=== PATIENT | female | born 1965 | race Caucasian/White ===

== ENCOUNTER 2016-04-20 11:21 | Emergency (ER) | payer MEDICARE, MEDICAID ==
[2016-04-20 12:58] VITALS: BP 139/96
[2016-04-20] MEDS ORDERED: Acetaminophen TAB* 325 MG PO ONE (13:27)
--- NOTE | 2016-04-20 13:38 | UC ---
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 patient did have a fever this morning of 100.5, currently temp is 97. care transition mgr says she looks pale, but deos not seem to be in pain at this time. Hx of diverticulitis. 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 - History of Current Complaint Chief Complaint: UCGeneralIllness Stated Complaint: DIARRHEA, AND FEVER Time Seen by Provider: 04/20/16 13:03 Hx Obtained From: Patient Hx From Patient Unobtainable Due To: Other - intellecual diabilities Timing: Constant Onset Severity: Mild Current Severity: Mild - Allergy/Home Medications Allergies/Adverse Reactions: Allergies Allergy/AdvReac Type Severity Reaction Status Date / Time Fluconazole [From Diflucan] Allergy Severe "DOESN'T Verified 03/18/16 20:41 SLEEP FOR DAYS & HITS HERSELF" Influenza Vaccines Allergy Severe Unknown Verified 03/18/16 20:41 Reaction Details PMH/Surg Hx/FS Hx/Imm Hx Previously Healthy: Yes Endocrine History Of: Denies: Diabetes, Thyroid Disease Cardiovascular History Of: Reports: Cardiac Disorders - Cardiomypathy, Hypertension - NEW 09/2015 Respiratory History Of: Reports: Bronchitis - 03/2013 Denies: COPD, Asthma GI/ History Of: Denies: Ulcer Neurological History Of: Reports: Seizures - LAST 1982 Psychological History Of: Reports: Anxiety - ON MEDICATION FOR - Surgical History Surgical History: Yes Surgery Procedure, Year, and Place: unclear - Family History Known Family History: Positive: Unknown - unable to verbalize due to mr - Social History Alcohol Use: None Substance Use Type: None Smoking Status (MU): Never Smoked Tobacco Have You Smoked in the Last Year: No - Immunization History Most Recent Influenza Vaccination: no allergiec Vaccination Up to Date: Yes Review of Systems Constitutional: Fever Skin: Negative Eyes: Negative ENT: Negative Respiratory: Negative Cardiovascular: Negative Gastrointestinal: Diarrhea Genitourinary: Negative Motor: Negative Neurovascular: Negative Musculoskeletal: Negative Neurological: Negative Psychological: Negative All Other Systems Reviewed And Are Negative: Yes Physical Exam Triage Information Reviewed: Yes Appearance: Well-Appearing, Well-Nourished, Ill-Appearing Vital Signs: Initial Vital Signs Temp 98.8 F 01/09/17 12:55 Pulse 80 04/20/16 12:55 Resp 18 04/20/16 12:55 BP 139/96 04/20/16 12:55 Vital Signs Reviewed: Yes Eye Exam: Normal Eyes: Positive: Conjunctiva Clear ENT Exam: Normal ENT: Positive: Normal ENT inspection, Pharynx normal, TMs normal Dental Exam: Normal Neck exam: Normal Neck: Positive: Supple, Nontender, No Lymphadenopathy Respiratory Exam: Normal Respiratory: Positive: Chest non-tender, Lungs clear, Normal breath sounds Cardiovascular Exam: Normal Cardiovascular: Positive: RRR, No Murmur, Pulses Normal Abdominal Exam: Normal, Other - patient is non verbal, but no facila grimacing or signs of pain noted. abdomen is soft. Abdomen Description: Positive: Nontender, No Organomegaly, Soft Bowel Sounds: Positive: Hyperactive Musculoskeletal Exam: Normal Musculoskeletal: Positive: Strength Intact - baseline, ROM Intact, No Edema Neurological Exam: Normal Neurological: Positive: Muscle Tone Normal Psychological Exam: Normal Psychological: Positive: Normal Response To Family Skin Exam: Normal Course/Dx - Course Course Of Treatment: hx obtained, exam performed, cbc obtained, tylenol given per request of caregiver, stool sample ordered. - Differential Dx - Multi-Symptom Provider Diagnoses: diarrhea. fever Discharge - Discharge Plan Condition: Stable Disposition: HOME Patient Education Materials: Acute Diarrhea (ED) Additional Instructions: At this time i recommend stopping the colase, lactulose, and miralax until the diarrhea subsides as they all contribute to increased Bowel movements. if it unclear in the paperwork why she is taking the lactulose, I am assuming there is a high ammonia level. Due to the history of diverticulitis, blood work was taken to assess her white count, to rule out diverticulitis flare up. In the mean time, continue to push fluids as tolerated to prevent dehydration. [place] diet, see enclosed insert about BRAT diet. Please obtain a stool sample and return it to the lab for testing. Return for further evaluation, or follow up with her primary Doctor if her temperature persists and diarrhea continues past 24 hours.
[2016-04-20 19:20] LABS: Hematocrit 38 % (35-47); Hemoglobin 12.6 g/dl (12.0-16.0); Mean Corpuscular HGB Conc 33 g/dl (31-36); Mean Corpuscular Hemoglobin 32 pg (27-31); Mean Corpuscular Volume 97 fL (80-97); Mean Platelet Volume 11 um3 (7.4-10.4); Red Blood Count 3.94 10^6/ul (4.0-5.4); Red Cell Distribution Width 13 % (10.5-15); White Blood Count 7.6 10^3/ul (3.5-10.8)
== END 2016-04-20 14:05 | disposition home or self-care (01) ==
LOC: UCEAST 11:21
DX: R19.7 Diarrhea, unspecified (principal); R50.9 Fever, unspecified; Z88.1 Allergy status to other antibiotic agents; Z88.7 Allergy status to serum and vaccine
CPT/HCPCS: 36415; 85025; 99212; A9270-GY; G0463

== ENCOUNTER 2016-09-18 18:41 | Emergency (ER) | payer MEDICARE, MEDICAID ==
[2016-09-18 18:56] VITALS: BP 133/76
--- NOTE | 2016-09-18 19:32 | UC ---
Complaint Female HPI - HPI Summary HPI Summary: Staff in her [place] [facility] believes she has a UTI--she had a fever today, and has been more agitated than usual (which they state is a symptom of pain for here) - History Of Current Complaint Chief Complaint: UCGU Stated Complaint: POSS UTI Time Seen by Provider: 09/18/16 19:09 Hx Obtained From: Patient ?: No Onset/Duration: Sudden Onset, Lasting Days - 1, Still Present Timing: Constant Severity Initially: Moderate Severity Currently: Moderate Associated Signs And Symptoms: Positive: Fever - Allergies/Home Medications Allergies/Adverse Reactions: Allergies Allergy/AdvReac Type Severity Reaction Status Date / Time Fluconazole [From Diflucan] Allergy Severe "DOESN'T Verified 03/18/16 20:41 SLEEP FOR DAYS & HITS HERSELF" Influenza Vaccines Allergy Severe Unknown Verified 03/18/16 20:41 Reaction Details PMH/Surg Hx/FS Hx/Imm Hx Previously Healthy: Yes - post noe brain injury GI/ History: Diverticulitis, Urosepsis Neurological History: Seizures - Surgical History Surgical History: Yes Surgery Procedure, Year, and Place: unclear - Family History Known Family History: Positive: Unknown - unable to verbalize due to mr - Social History Occupation: Disabled Lives: Correction Alcohol Use: None Substance Use Type: None Smoking Status (MU): Never Smoked Tobacco Have You Smoked in the Last Year: No - Immunization History Most Recent Influenza Vaccination: no allergiec Vaccination Up to Date: Yes Review of Systems Constitutional: Fever Skin: Negative Eyes: Negative ENT: Negative Respiratory: Negative Cardiovascular: Negative Gastrointestinal: Negative Genitourinary: Negative Motor: Negative Neurovascular: Negative Musculoskeletal: Negative Neurological: Negative Psychological: Anxious All Other Systems Reviewed And Are Negative: Yes Physical Exam Triage Information Reviewed: Yes Appearance: Well-Nourished, Ill-Appearing - chronic illness, Pain Distress - yes per the [place] [facility] staff Vital Signs: Initial Vital Signs Temp 95.9 F 09/18/16 18:52 Pulse 102 09/18/16 18:52 Resp 18 09/18/16 18:52 BP 133/76 09/18/16 18:52 Pulse Ox 99 09/18/16 18:52 Vital Signs Reviewed: Yes Eye Exam: Normal Eyes: Positive: Conjunctiva Clear ENT Exam: Normal ENT: Positive: Normal ENT inspection, Hearing grossly normal, Pharynx normal, TMs normal. Negative: Nasal congestion, Nasal drainage, Tonsillar swelling, Tonsillar exudate, Trismus, Muffled/hoarse voice Dental Exam: Normal Neck exam: Normal Neck: Positive: Supple, Nontender, No Lymphadenopathy Respiratory Exam: Normal Respiratory: Positive: Lungs clear, Normal breath sounds, No accessory muscle use Cardiovascular Exam: Normal Cardiovascular: Positive: No Murmur, Pulses Normal, Brisk Capillary Refill, Tachycardia Abdominal Exam: Normal Abdomen Description: Positive: Nontender, No Organomegaly, Soft. Negative: CVA Tenderness (R), CVA Tenderness (L) Bowel Sounds: Positive: Present Musculoskeletal Exam: Normal Musculoskeletal: Positive: No Edema, Strength Limited @, ROM Limited @ Neurological Exam: Normal Neurological: Positive: Alert - to her baseline, Muscle Tone Normal Psychological Exam: Normal Psychological: Positive: Other: - seems upset and agitated Skin Exam: Normal Complaint Female Dx - Course Course Of Treatment: transfer to hospital with [place] [facility] staff driving - Differential Dx/Diagnosis Differential Diagnosis/HQI/PQRI: Appendicitis, Renal Colic, Urinary Tract Infection Provider Diagnoses: febrile illness, sepsis Discharge - Discharge Plan Condition: Guarded Disposition: AGAINST MEDICAL ADVICE
== END 2016-09-18 19:25 | disposition left against medical advice (07) ==
LOC: UCEAST 18:41
DX: A41.9 Sepsis, unspecified organism (principal); R50.9 Fever, unspecified; R56.9 Unspecified convulsions; Z88.7 Allergy status to serum and vaccine; Z88.1 Allergy status to other antibiotic agents
CPT/HCPCS: 99212; G0463

== ENCOUNTER 2016-09-18 19:54 | Inpatient (IN) | payer MEDICARE, MEDICAID ==
[2016-09-18] MEDS ORDERED: NS 0.9% 1000 ML* 2,000 ML IV ONE (20:52)
[2016-09-18 21:48] LABS: Hematocrit 36 % (35-47); Hemoglobin 11.6 g/dl (12.0-16.0); Mean Corpuscular HGB Conc 33 g/dl (31-36); Mean Corpuscular Hemoglobin 32 pg (27-31); Mean Corpuscular Volume 98 fL (80-97); Mean Platelet Volume 12 um3 (7.4-10.4); Red Blood Count 3.63 10^6/ul (4.0-5.4); Red Cell Distribution Width 13 % (10.5-15); White Blood Count 8.2 10^3/ul (3.5-10.8)
[2016-09-18 21:54] LABS: Add Diff/Slide Review? Slide Review Added; Comments Flag Yes
[2016-09-18 22:03] LABS: ALT 13 U/L (7-52); Albumin 4.3 g/dL (3.2-5.2); Alkaline Phosphatase 50 U/L (34-104); BUN/Creatinine Ratio 25.5 (8-20); Blood Urea Nitrogen 12 mg/dL (6-24); C Reactive Protein < 1.00 mg/L (< 5.00); CO2 Carbon Dioxide 25 mmol/L (22-32); Calcium 10.1 mg/dL (8.6-10.3); Chloride 105 mmol/L (101-111); EGFR African American 178.3 (>60); EGFR Non-African American 138.6 (>60); Glucose 94 mg/dL (70-100); Sodium 136 mmol/L (133-145); Total Protein 7.3 g/dL (6.4-8.9)
[2016-09-18 22:09] LABS: Lithium 0.67 mmol/L (0.6-1.2)
[2016-09-18 22:11] LABS: Urine Bacteria Absent (Absent); Urine Bilirubin Negative (Negative); Urine Glucose Negative (Negative); Urine Nitrite Negative (Negative)
--- NOTE | 2016-09-18 22:13 | RAD ---
INDICATION: Fever. COMPARISON: Comparison is made with a prior chest x-ray study from March 11, 2016. TECHNIQUE: A portable view of the chest was obtained. FINDINGS: Cardiac and mediastinal contours appear to be within normal limits. The lungs are underinflated. There is a small infiltrate at the medial right lung base. No pleural effusion is seen. IMPRESSION: SMALL RIGHT BASILAR INFILTRATE.
[2016-09-18] MEDS ORDERED: Levofloxacin 750 MG IVPREMIX(* 750 MG/150 ML BAG IVPB ONE (23:00)
--- NOTE | 2016-09-19 00:50 | HP ---
H&P (Free Text) History and Physical: PCP: Shola Lunsford MD Date/Time of Evaluation: 09/19/2016 0030 CC: fever HPI: Mrs Hutchins is a 51YO female resident of [facility] who is profoundly mentally challenged and unable to make her needs known at or inform on current status at baseline. She was noted to be agitated with a fever which prompted evaluation. Otherwise, per her [facility] caregiver, she has been at her baseline. Evaluation is notable for soft pressures 90/50s & CXR with a RLL infiltrate. PMedHx profoundly mentally challenged HTN cardiomyopathy otherwise unobtainable Ambulatory Orders Acetaminophen TAB* [Tylenol TAB*] 650 mg PO Q4H PRN 09/19/16 Bacitracin OINTMENT* 1 applic TOPICAL BID 09/19/16 Chlorhexidine MOUTHWASH 0.12%* [Peridex Mouth Wash 0.12%*] 15 ml .SEE ORDER BID 09/19/16 Docusate CAP* [Colace Cap*] 100 mg PO BID 09/19/16 Ketoconazole (Topical) [Ketoconazole] 2 % EX WEEKLY 09/19/16 Lactobacillus [Probiotic] 1 cap PO DAILY 09/19/16 Lactulose* 15 ml PO BID 09/19/16 [place] Carbonate TAB* 450 mg PO BID 09/19/16 LoraTADine TAB(NF) [Claritin 10 MG TAB(NF)] 10 mg PO DAILY 09/19/16 Nystatin/Triamcinolone CR(NF) [Mycolog CREAM(NF)] 1 applic TOPICAL BID 09/19/16 Omeprazole CAP* [Prilosec CAP* 20 MG] 40 mg PO DAILY 09/19/16 Pancrelipase (Lipase-Protease- [Creon 6000 Unit] 1 cap PO TID 09/19/16 Polyethylene Glycol 3350 BTL* [Miralax] 238 gm PO ONCE 09/19/16 Simethicone CHEW TAB* [Mylicon*] 80 mg PO BID 09/19/16 Tizanidine HCl 4 mg PO TID 09/19/16 Vitamins A & D OINT* [Vitamin A & D Oint*] 1 applic TOPICAL BID 09/19/16 guaiFENesin LIQ* [Robitussin*] 5 mg PO Q4H PRN 09/19/16 risperiDONE TAB* [RisperDAL*] 0.5 mg PO DAILY 09/19/16 Allergies Fluconazole [From Diflucan] Allergy (Severe, Verified 03/18/16 20:41) "DOESN'T SLEEP FOR DAYS & HITS HERSELF" Influenza Vaccines Allergy (Severe, Verified 03/18/16 20:41) Unknown Reaction Details SocHx: no tobacco, alcohol, or recreational drugs; resides at [facility]; full code status FamHx: unobtainable ROS: as above, otherwise reviewed and all were negative Constitutional: NAD, normally developed, overweight white female occasionally abruptly grunting interpreted as pain by her caregiver vitals: Vital Signs Temp 36.8 C 09/18/16 23:31 Pulse 88 09/18/16 23:42 Resp 20 09/18/16 20:15 BP 95/64 09/18/16 23:42 Pulse Ox 98 09/18/16 23:42 Intake & Output 09/18/16 09/18/16 09/19/16 11:59 23:59 11:59 Weight 65.771 kg HEENM: atraumatic; sclera/conjunctiva: non-icteric/clear; hearing: clinically intact; oropharynx: clear, mucosa moist Neck: soft tissue: no nuchal rigidity; thyroid: normal Pulmonary: clear to auscultation bilaterally, fair to good aeration, no accessory muscle use CV: RR/RR, normal S1S2, no carotid bruit, no jugular venous distention, 2+ B DP/ PT, no edema Abdominal: soft, non-distended, non-tender, no rebound/guarding/rigidity, normoactive bowel sounds, no hepatosplenomegaly or masses, no costovertebral angle tenderness Musculoskeletal: general: grossly intact; gait: non-ambulatory at baseline Integumental: normal appearance and texture of exposed skin Psychiatric orientation: AA & disoriented affect: mildly agitated mood: cooperative eye contact: poor content: non-verbal at baseline, unable to make needs or current status known insight: poor to absent Testing: Lab Results 09/18/16 09/18/16 09/18/16 Range/Units 21:20 21:20 21:20 WBC 8.2 (3.5-10.8) 10^3/ul RBC 3.63 L (4.0-5.4) 10^6/ul Hgb 11.6 L (12.0-16.0) g/dl Hct 36 (35-47) % MCV 98 H (80-97) fL MCH 32 H (27-31) pg MCHC 33 (31-36) g/dl RDW 13 (10.5-15) % Plt Count 152 (150-450) 10^3/ul MPV 12 H (7.4-10.4) um3 Neut % (Auto) 55.0 (38-83) % Lymph % (Auto) 28.7 (25-47) % [place] % (Auto) 8.1 (1-9) % Eos % (Auto) 4.1 (0-6) % Baso % (Auto) 4.1 H (0-2) % Absolute Neuts (auto) 4.5 (1.5-7.7) 10^3/ul Absolute Lymphs (auto) 2.3 (1.0-4.8) 10^3/ul Absolute Monos (auto) 0.7 (0-0.8) 10^3/ul Absolute Eos (auto) 0.3 (0-0.6) 10^3/ul Absolute Basos (auto) 0.3 H (0-0.2) 10^3/ul Absolute Nucleated RBC 0.01 10^3/ul Nucleated RBC % 0.1 INR (Anticoag Therapy) (0.89-1.11) APTT (26.0-36.3) seconds Sodium 136 (133-145) mmol/L Potassium TNP Chloride 105 (101-111) mmol/L Carbon Dioxide 25 (22-32) mmol/L Anion Gap TNP BUN 12 (6-24) mg/dL Creatinine 0.47 L (0.51-0.95) mg/dL Est GFR ( Amer) 178.3 (>60) Est GFR (Non-Af Amer) 138.6 (>60) BUN/Creatinine Ratio 25.5 H (8-20) Glucose 94 (70-100) mg/dL Lactic Acid (0.5-2.0) mmol/L Calcium 10.1 (8.6-10.3) mg/dL Total Bilirubin 0.30 (0.2-1.0) mg/dL AST TNP ALT 13 (7-52) U/L Alkaline Phosphatase 50 (34-104) U/L Troponin I 0.00 (<0.04) ng/mL C-Reactive Protein < 1.00 (< 5.00) mg/L Total Protein 7.3 (6.4-8.9) g/dL Albumin 4.3 (3.2-5.2) g/dL Globulin 3.0 (2-4) g/dL Albumin/Globulin Ratio 1.4 (1-3) Urine Color Yellow Urine Appearance Clear Urine pH 6.0 (5-9) Ur Specific [place] 1.013 (1.010-1.030) Urine Protein Negative (Negative) Urine Ketones Negative (Negative) Urine Blood 1+ H (Negative) Urine Nitrate Negative (Negative) Urine Bilirubin Negative (Negative) Urine Urobilinogen Negative (Negative) Ur Leukocyte Esterase Trace H (Negative) Urine WBC (Auto) Trace(0-5/hpf) (Absent) Urine RBC (Auto) Trace(0-2/hpf) (Absent) Ur Squamous Epith Cells Present H (Absent) Urine Bacteria Absent (Absent) Urine Glucose Negative (Negative) Urine Ascorbic Acid * H (Negative) [place] 0.67 (0.6-1.2) mmol/L 09/18/16 09/18/16 09/18/16 Range/Units 21:20 22:30 22:30 WBC (3.5-10.8) 10^3/ul RBC (4.0-5.4) 10^6/ul Hgb (12.0-16.0) g/dl Hct (35-47) % MCV (80-97) fL MCH (27-31) pg MCHC (31-36) g/dl RDW (10.5-15) % Plt Count (150-450) 10^3/ul MPV (7.4-10.4) um3 Neut % (Auto) (38-83) % Lymph % (Auto) (25-47) % [place] % (Auto) (1-9) % Eos % (Auto) (0-6) % Baso % (Auto) (0-2) % Absolute Neuts (auto) (1.5-7.7) 10^3/ul Absolute Lymphs (auto) (1.0-4.8) 10^3/ul Absolute Monos (auto) (0-0.8) 10^3/ul Absolute Eos (auto) (0-0.6) 10^3/ul Absolute Basos (auto) (0-0.2) 10^3/ul Absolute Nucleated RBC 10^3/ul Nucleated RBC % INR (Anticoag Therapy) 0.99 (0.89-1.11) APTT 28.1 (26.0-36.3) seconds Sodium (133-145) mmol/L Potassium 3.5 Chloride (101-111) mmol/L Carbon Dioxide (22-32) mmol/L Anion Gap BUN (6-24) mg/dL Creatinine (0.51-0.95) mg/dL Est GFR ( Amer) (>60) Est GFR (Non-Af Amer) (>60) BUN/Creatinine Ratio (8-20) Glucose (70-100) mg/dL Lactic Acid 0.8 (0.5-2.0) mmol/L Calcium (8.6-10.3) mg/dL Total Bilirubin (0.2-1.0) mg/dL AST 17 ALT (7-52) U/L Alkaline Phosphatase (34-104) U/L Troponin I (<0.04) ng/mL C-Reactive Protein (< 5.00) mg/L Total Protein (6.4-8.9) g/dL Albumin (3.2-5.2) g/dL Globulin (2-4) g/dL Albumin/Globulin Ratio (1-3) Urine Color Urine Appearance Urine pH (5-9) Ur Specific [place] (1.010-1.030) Urine Protein (Negative) Urine Ketones (Negative) Urine Blood (Negative) Urine Nitrate (Negative) Urine Bilirubin (Negative) Urine Urobilinogen (Negative) Ur Leukocyte Esterase (Negative) Urine WBC (Auto) (Absent) Urine RBC (Auto) (Absent) Ur Squamous Epith Cells (Absent) Urine Bacteria (Absent) Urine Glucose (Negative) Urine Ascorbic Acid (Negative) [place] (0.6-1.2) mmol/L CXR, personally reviewed: IMPRESSION: SMALL RIGHT BASILAR INFILTRATE. Impression: 51F profoundly mentally challenged presents with RLL pneumonia DIAGNOSIS & PLAN Primary RLL pneumonia : levofloxacin IV : IVFs : blood & sputum CXs : check urine Legionella & S pneumo antigens : supplemental oxygen : supportive care Secondary profoundly mentally challenged : no acute issues Admission Rational: inpatient for RLL pneumonia in a patient at risk for rapid decompensation; inappropriate for outpatient setting DVTp: heparin SQ & SCDs Code Status: full HCP: unable to determine
[2016-09-19] MEDS ORDERED: CMCS: Melatonin (NF) 3 MG TAB PO PRN (01:24)
[2016-09-19] MEDS ORDERED: Ondansetron INJ* 2 MG/ML VIAL IV PRN (01:25)
[2016-09-19] MEDS ORDERED: Acetaminophen SUPP* 650 MG SUPP PR PRN (01:27)
[2016-09-19] MEDS ORDERED: NS 0.9% 1000 ML* 1,000 ML IV SCH (01:30)
[2016-09-19] MEDS ORDERED: guaiFENesin LIQ* 100 MG/5 ML UDC PO PRN (01:36)
--- NOTE | 2016-09-19 02:57 | ED ---
Igor Morrow Alok, scribed for Hoang Bernabe MD on 09/18/16 at 2114 . HPI Febrile Illness - HPI Summary HPI Summary: 51F presents to the ED with a fever of 100.6 F taken at 1530 today. 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 Pt appears agitated and plate mill hand confirms agitation worse than baseline. Pt is non-verbal and wheel-chair bound. Pt plate mill hand denies vomiting in pt. She denies cough or rash. She denies rhinorrhea. Hand Marker states pt urine frequency same as baseline and denies unusual urine smell. Pt has h/o UTI. Pt takes lithium. Pt is allergic to influenza vaccine and has not had flu shot. - History of Current Complaint Chief Complaint: EDFever Time Seen by Provider: 09/18/16 20:30 Hx Obtained From: Family/Hand Marker Hx From Patient Unobtainable Due To: Other - MR Onset/Duration: Started Hours Ago, Atraumatic, Still Present Time of Onset: 15:30 Timing: Constant Temperature: 100.6 F Initial Severity: Moderate Current Severity: Moderate Pain Scale Used: Adult Non Verbal Aggravating Factors: Nothing Alleviating Factors: OTC Medicine - Tylenol - Allergy/Home Medications Allergies/Adverse Reactions: Allergies Allergy/AdvReac Type Severity Reaction Status Date / Time Fluconazole [From Diflucan] Allergy Severe "DOESN'T Verified 03/18/16 20:41 SLEEP FOR DAYS & HITS HERSELF" Influenza Vaccines Allergy Severe Unknown Verified 03/18/16 20:41 Reaction Details PMH/Surg Hx/FS Hx/Imm Hx Endocrine/Hematology History: Reports: Hx Anemia Denies: Hx Diabetes, Hx Thyroid Disease Cardiovascular History: Reports: Hx Hypertension - NEW 09/2015 Respiratory History: Reports: Hx Seasonal Allergies, Other Respiratory Problems/ Disorders - PLEURAL EFFUSION IN 03/2013- TREATED WITH ABX Denies: Hx Asthma, Hx Chronic Obstructive Pulmonary Disease (COPD) GI History: Reports: Other GI Disorders - hx of impaction/INC OF STOOL Denies: Hx Ulcer History: Reports: Hx Kidney Infection Musculoskeletal History: Reports: Hx Back Problems, Hx Osteoporosis, Hx Scoliosis Sensory History: Denies: Hx Contacts or Glasses, Hx Hearing Aid Opthamlomology History: Denies: Hx Contacts or Glasses Neurological History: Reports: Hx Seizures - LAST 1982, Other Neuro Impairments/ Disorders - BEHAVORAL OUTBURSTS Psychiatric History: Reports: Hx Anxiety - ON MEDICATION FOR - Cancer History Cancer Type, Location and Year: right breast mass - benign - Surgical History Surgery Procedure, Year, and Place: unclear - Immunization History Date of Tetanus Vaccine: UTD Date of Influenza Vaccine: 2012 Infectious Disease History: No Infectious Disease History: Denies: Hx Clostridium Difficile, Hx Hepatitis, Hx Human Immunodeficiency Virus (HIV), Hx of Known/Suspected MRSA, Hx Shingles, Hx Tuberculosis, Hx Known/ Suspected VRE, Hx Known/Suspected VRSA, History Other Infectious Disease, Traveled Outside the [place] in Last 30 Days - Family History Known Family History: Positive: Unknown - unable to verbalize due to mr - Social History Occupation: Disabled Lives: Long-Term Alcohol Use: None Hx Substance Use: No Substance Use Type: Reports: None Hx Tobacco Use: No Smoking Status (MU): Never Smoked Tobacco Have You Smoked in the Last Year: No Review of Systems Positive: Fever Negative: Nasal Discharge Negative: Cough Negative: Vomiting Negative: frequency - urinary Negative: Rash Positive: Other - agitated All Other Systems Reviewed And Are Negative: Yes Physical Exam - Summary Physical Exam Summary: The patient is well-nourished in no acute distress and in no acute pain. Pt is non-verbal and wheelchair bound. The skin is warm and dry and skin color reflects adequate perfusion. Good skin turgor. HEENT: The head is normocephalic and atraumatic. The pupils are equal and reactive. The conjunctivae are clear and without drainage. Nares are patent and without drainage. Mouth reveals dry mucous membranes. Teeth in good repair. The external ears are intact. The ear canals are patent and without drainage. The tympanic membranes are intact. No rhinorrhea Neck is supple with full range of motion and non-tender. There are no carotid bruits. There is no neck vein distension. No nuchal rigidity. Respiratory: Chest is non-tender. Lungs are clear to auscultation and breath sounds are symmetrical and equal. Cardiovascular: Hear is regular rate and rhythm. There is no murmur or rub auscultated. There is no peripheral edema and pulses are symmetrical and equal. Abdomen: The abdomen is soft and non-tender. No distention. No guarding. There are normal bowel sounds heard in all four quadrants and there is no organomegaly palpated. Musculoskeletal: There is no back pain noted. Extremities are non-tender with full range of motion. There is good capillary refill. There is no peripheral edema or calf tenderness elicited. Neurological: Patient is not oriented and non-verbal. The patient has symmetrical motor strength in all four extremities. Cranial nerves are grossly intact. Deep tendon reflexes are symmetrical and equal in all four extremities. Psychiatric: The patient has an appropriate affect and does not exhibit any anxiety or depression. Triage Information Reviewed: Yes Vital Signs On Initial Exam: Initial Vitals Temp Pulse Resp BP Pulse Ox 97.4 F 75 20 133/62 98 09/18/16 20:00 09/18/16 20:00 09/18/16 20:00 09/18/16 20:00 09/18/16 20:00 Vital Signs Reviewed: Yes Diagnostics - Vital Signs Vital Signs Temp Pulse Resp BP Pulse Ox 09/18/16 20:15 97.4 F 75 20 133/62 97 09/18/16 20:00 97.4 F 75 20 133/62 98 - Laboratory Lab Results: Lab Results 09/18/16 09/18/16 09/18/16 Range/Units 21:20 21:20 21:20 WBC 8.2 (3.5-10.8) 10^3/ul RBC 3.63 L (4.0-5.4) 10^6/ul Hgb 11.6 L (12.0-16.0) g/dl Hct 36 (35-47) % MCV 98 H (80-97) fL MCH 32 H (27-31) pg MCHC 33 (31-36) g/dl RDW 13 (10.5-15) % Plt Count 152 (150-450) 10^3/ul MPV 12 H (7.4-10.4) um3 Neut % (Auto) 55.0 (38-83) % Lymph % (Auto) 28.7 (25-47) % [place] % (Auto) 8.1 (1-9) % Eos % (Auto) 4.1 (0-6) % Baso % (Auto) 4.1 H (0-2) % Absolute Neuts (auto) 4.5 (1.5-7.7) 10^3/ul Absolute Lymphs (auto) 2.3 (1.0-4.8) 10^3/ul Absolute Monos (auto) 0.7 (0-0.8) 10^3/ul Absolute Eos (auto) 0.3 (0-0.6) 10^3/ul Absolute Basos (auto) 0.3 H (0-0.2) 10^3/ul Absolute Nucleated RBC 0.01 10^3/ul Nucleated RBC % 0.1 INR (Anticoag Therapy) (0.89-1.11) APTT (26.0-36.3) seconds Sodium 136 (133-145) mmol/L Potassium TNP Chloride 105 (101-111) mmol/L Carbon Dioxide 25 (22-32) mmol/L Anion Gap TNP BUN 12 (6-24) mg/dL Creatinine 0.47 L (0.51-0.95) mg/dL Est GFR ( Amer) 178.3 (>60) Est GFR (Non-Af Amer) 138.6 (>60) BUN/Creatinine Ratio 25.5 H (8-20) Glucose 94 (70-100) mg/dL Lactic Acid (0.5-2.0) mmol/L Calcium 10.1 (8.6-10.3) mg/dL Total Bilirubin 0.30 (0.2-1.0) mg/dL AST TNP ALT 13 (7-52) U/L Alkaline Phosphatase 50 (34-104) U/L Troponin I 0.00 (<0.04) ng/mL C-Reactive Protein < 1.00 (< 5.00) mg/L Total Protein 7.3 (6.4-8.9) g/dL Albumin 4.3 (3.2-5.2) g/dL Globulin 3.0 (2-4) g/dL Albumin/Globulin Ratio 1.4 (1-3) Urine Color Yellow Urine Appearance Clear Urine pH 6.0 (5-9) Ur Specific [place] 1.013 (1.010-1.030) Urine Protein Negative (Negative) Urine Ketones Negative (Negative) Urine Blood 1+ H (Negative) Urine Nitrate Negative (Negative) Urine Bilirubin Negative (Negative) Urine Urobilinogen Negative (Negative) Ur Leukocyte Esterase Trace H (Negative) Urine WBC (Auto) Trace(0-5/hpf) (Absent) Urine RBC (Auto) Trace(0-2/hpf) (Absent) Ur Squamous Epith Cells Present H (Absent) Urine Bacteria Absent (Absent) Urine Glucose Negative (Negative) Urine Ascorbic Acid * H (Negative) [place] 0.67 (0.6-1.2) mmol/L 09/18/16 09/18/16 09/18/16 Range/Units 21:20 22:30 22:30 WBC (3.5-10.8) 10^3/ul RBC (4.0-5.4) 10^6/ul Hgb (12.0-16.0) g/dl Hct (35-47) % MCV (80-97) fL MCH (27-31) pg MCHC (31-36) g/dl RDW (10.5-15) % Plt Count (150-450) 10^3/ul MPV (7.4-10.4) um3 Neut % (Auto) (38-83) % Lymph % (Auto) (25-47) % [place] % (Auto) (1-9) % Eos % (Auto) (0-6) % Baso % (Auto) (0-2) % Absolute Neuts (auto) (1.5-7.7) 10^3/ul Absolute Lymphs (auto) (1.0-4.8) 10^3/ul Absolute Monos (auto) (0-0.8) 10^3/ul Absolute Eos (auto) (0-0.6) 10^3/ul Absolute Basos (auto) (0-0.2) 10^3/ul Absolute Nucleated RBC 10^3/ul Nucleated RBC % INR (Anticoag Therapy) 0.99 (0.89-1.11) APTT 28.1 (26.0-36.3) seconds Sodium (133-145) mmol/L Potassium 3.5 Chloride (101-111) mmol/L Carbon Dioxide (22-32) mmol/L Anion Gap BUN (6-24) mg/dL Creatinine (0.51-0.95) mg/dL Est GFR ( Amer) (>60) Est GFR (Non-Af Amer) (>60) BUN/Creatinine Ratio (8-20) Glucose (70-100) mg/dL Lactic Acid 0.8 (0.5-2.0) mmol/L Calcium (8.6-10.3) mg/dL Total Bilirubin (0.2-1.0) mg/dL AST 17 ALT (7-52) U/L Alkaline Phosphatase (34-104) U/L Troponin I (<0.04) ng/mL C-Reactive Protein (< 5.00) mg/L Total Protein (6.4-8.9) g/dL Albumin (3.2-5.2) g/dL Globulin (2-4) g/dL Albumin/Globulin Ratio (1-3) Urine Color Urine Appearance Urine pH (5-9) Ur Specific [place] (1.010-1.030) Urine Protein (Negative) Urine Ketones (Negative) Urine Blood (Negative) Urine Nitrate (Negative) Urine Bilirubin (Negative) Urine Urobilinogen (Negative) Ur Leukocyte Esterase (Negative) Urine WBC (Auto) (Absent) Urine RBC (Auto) (Absent) Ur Squamous Epith Cells (Absent) Urine Bacteria (Absent) Urine Glucose (Negative) Urine Ascorbic Acid (Negative) [place] (0.6-1.2) mmol/L Result Diagrams: 09/18/16 21:20 09/18/16 22:30 Lab Statement: Any lab studies that have been ordered have been reviewed, and results considered in the medical decision making process. - Radiology CXR Xray Interpretation: Positive (See Comments) - IMPRESSION: SMALL RIGHT BASILAR INFILTRATE. Radiology Interpretation Completed By: Radiologist Re-Evaluation - Re-Evaluation First Eval Re-Evaluation Time: 23:04 Change: Unchanged Comment: Pt has PNA. Will seek hospitalist for pt admit. Course/Dx - Febrile Illness Differential Diagnoses: Pneumonia, Other: - uti, viral syndrome - Diagnoses Provider Diagnoses: PNA (pneumonia) - Provider Notifications Discussed Care Of Patient With: Rogelio Meza - Will admit pt Time Discussed With Above Provider: 23:31 Discharge - Discharge Plan Condition: Stable Disposition: ADMITTED TO [facility] documentation as recorded by the Igor gonsalez Alok accurately reflects the service I personally performed and the decisions made by , Hoang Bernabe MD.
[2016-09-19] MEDS ORDERED: Morphine INJ* 2 MG/ML 1 ML SYRINGE IV PRN (05:19)
[2016-09-19] MEDS ORDERED: Omeprazole CAP* 20 MG PO SCH (06:00)
[2016-09-19] MEDS: Simethicone CHEW TAB* 80 MG PO SCH ×2 (08:13→20:32)
[2016-09-19] MEDS: risperiDONE TAB* 1 MG PO SCH (08:13)
[2016-09-19] MEDS: Omeprazole CAP* 20 MG PO SCH (08:13)
[2016-09-19] MEDS: Lactulose* 15 ML UDC PO SCH ×2 (08:14→20:31)
[2016-09-19] MEDS: Polyethylene Glycol 3350* 17 GM PACKET PO SCH (08:14)
[2016-09-19] MEDS: Lithium Carbonate TAB* 300 MG PO SCH ×2 (08:14→20:33)
[2016-09-19] MEDS: Docusate CAP* 100 MG PO SCH ×2 (08:14→20:32)
[2016-09-19] MEDS: Cetirizine* 10 MG TAB PO SCH (08:14)
[2016-09-19] MEDS: tiZANidine TAB* 2 MG PO SCH ×3 (08:14→20:32)
[2016-09-19] MEDS: Pancrelipase CAP* 5,000 UNITS CAP PO SCH ×3 (08:15→17:28)
[2016-09-19] MEDS: Chlorhexidine MOUTHWASH 0.12%* 15 ML UDC SWISH SPIT SCH ×2 (08:15→20:38)
[2016-09-19] MEDS ORDERED: LORazepam TAB(*) 0.5 MG PO PRN (09:02)
--- NOTE | 2016-09-19 09:08 | PN ---
Subjective Date of Service: 09/19/16 Interval History: Patient seen this morning. She is non-verbal, aide at bedside. Patient is calling out incoherently, appears slightly agitated but comfortable. Aide states this is much more agitated that her baseline. Family History: Unchanged from Admission Social History: Unchanged from Admission Past Medical History: Unchanged from Admission Objective Active Medications: Acetaminophen (Tylenol Supp*) 650 mg MO Q6H PRN Cetirizine HCl (Zyrtec*) 10 mg PO DAILY KIP Chlorhexidine Gluconate (Peridex Mouth Wash 0.12%*) 15 ml SWISH SPIT BID KIP Docusate Sodium (Colace Cap*) 100 mg PO BID KIP Guaifenesin (Robitussin*) 5 ml PO Q4H PRN Heparin Sodium (Porcine) (Heparin Vial(*)) 5,000 units SUBCUT Q8HR KIP Levofloxacin/Dextrose (Levaquin 750 Mg Ivpremix(*)) 750 mg in 150 mls @ 100 mls /hr IVPB Q24H KIP Sodium Chloride (Ns 0.9% 1000 Ml*) 1,000 mls @ 125 mls/hr IV PER RATE KIP Lactulose (Lactulose*) 15 ml PO BID KIP [place] Carbonate ([place]le Carbonate Tab*) 450 mg PO BID KIP Lorazepam (Ativan Tab(*)) 0.25 mg PO Q4H PRN Melatonin (Melatonin (Nf)) 3 mg PO BEDTIME PRN; Protocol Morphine Sulfate (Morphine Inj (Syringe)*) 1 mg IV Q2H PRN Omeprazole (Prilosec Cap*) 40 mg PO DAILY@0730 KIP Ondansetron HCl (Zofran Inj*) 4 mg IV Q6H PRN Pancrelipase (Zenpep Delayed Cap*) 5,000 units PO TID WITH MEALS KIP Polyethylene Glycol/Electrolytes (Miralax*) 17 gm PO DAILY KIP Risperidone (Risperdal*) 0.5 mg PO DAILY KIP Simethicone (Mylicon*) 80 mg PO BID KIP Tizanidine HCl (Zanaflex Tab*) 4 mg PO TID KIP Vital Signs 09/19/16 09/19/16 09/19/16 03:30 03:36 05:30 Temperature 99.1 F 99.1 F Pulse Rate 92 92 Respiratory 19 19 18 Rate Blood Pressure 106/77 106/77 (mmHg) O2 Sat by Pulse 100 100 Oximetry 09/19/16 09/19/16 08:01 08:53 Temperature 99.0 F Pulse Rate 120 Respiratory 17 20 Rate Blood Pressure 121/58 (mmHg) O2 Sat by Pulse 97 Oximetry Oxygen Devices in Use Now: None Appearance: Middle-aged, F, laying in bed in NAD Eyes: No Scleral Icterus Ears/Nose/Mouth/Throat: - - Dry MM Neck: NL Appearance and Movements; NL JVP Respiratory: Symmetrical Chest Expansion and Respiratory Effort, - - RLL rales Cardiovascular: NL Sounds; No Murmurs; No JVD, RRR Abdominal: NL Sounds; No Tenderness; No Distention Lymphatic: No Cervical Adenopathy Extremities: No Edema Skin: No Rash or Ulcers Neurological: - - Alert, non-verbal, repetitive sounds Result Diagrams: 09/18/16 21:20 09/18/16 22:30 Microbiology and Other Data: Microbiology 09/19/16 04:10 Nasal Screen MRSA (PCR)(MYNOR) - Final Nasal Mrsa Negative Assess/Plan/Problems-Billing Assessment: CAP in a 51 yo F with developmental disability, autism, seizure d/o, HTN, cardiomyopathy - Patient Problems (1) CAP (community acquired pneumonia) Current Visit: Yes Comment: Infiltrate noted on CXR, fever at home. Continue IV ABx, will switch to CTX/Azithromycin. CBC in AM. Decrease IVF to 75 cc/hr (2) Developmental disability Current Visit: Yes Comment: Autism. Continue home medications (3) DVT prophylaxis Current Visit: Yes Comment: HSQ
[2016-09-19] MEDS: NS 0.9% 1000 ML* 1,000 ML IV SCH (11:33)
[2016-09-19] MEDS ORDERED: cefTRIAXone VIAL(*) 1,000 MG in NS 0.9% 50 ML* 50 ML IVPB SCH (22:30)
[2016-09-19] MEDS ORDERED: Azithromycin IV(*) 500 MG in NS 0.9% 250 ML* 250 ML IVPB SCH (23:00)
[2016-09-20] MEDS ORDERED: Levofloxacin 750 MG IVPREMIX(* 750 MG/150 ML BAG IVPB SCH
[2016-09-20] MEDS: NS 0.9% 1000 ML* 1,000 ML IV SCH (02:49)
[2016-09-20 04:01] VITALS: BP 115/58
[2016-09-20 05:32] LABS: Hematocrit 31 % (35-47); Hemoglobin 10.1 g/dl (12.0-16.0); Mean Corpuscular HGB Conc 33 g/dl (31-36); Mean Corpuscular Hemoglobin 32 pg (27-31); Mean Corpuscular Volume 98 fL (80-97); Mean Platelet Volume 11 um3 (7.4-10.4); Red Blood Count 3.13 10^6/ul (4.0-5.4); Red Cell Distribution Width 13 % (10.5-15); White Blood Count 5.3 10^3/ul (3.5-10.8)
[2016-09-20 06:00] LABS: BUN/Creatinine Ratio 19.4 (8-20); EGFR African American 242.5 (>60); EGFR Non-African American 188.6 (>60); Potassium 3.6 mmol/L (3.5-5.0)
[2016-09-20] MEDS ORDERED: Heparin VIAL(*) 5000 UNITS/ML VIAL (FIVE THOUSAND) SUBCUT SCH (06:00)
[2016-09-20] MEDS: Docusate CAP* 100 MG PO SCH (07:05)
[2016-09-20] MEDS: Polyethylene Glycol 3350* 17 GM PACKET PO SCH (07:05)
[2016-09-20] MEDS: tiZANidine TAB* 2 MG PO SCH (07:11)
[2016-09-20] MEDS: Simethicone CHEW TAB* 80 MG PO SCH (07:11)
[2016-09-20] MEDS: Omeprazole CAP* 20 MG PO SCH (07:11)
[2016-09-20] MEDS: Cetirizine* 10 MG TAB PO SCH (07:11)
[2016-09-20] MEDS: risperiDONE TAB* 1 MG PO SCH (07:11)
[2016-09-20] MEDS: Chlorhexidine MOUTHWASH 0.12%* 15 ML UDC SWISH SPIT SCH (07:11)
[2016-09-20] MEDS: Lactulose* 15 ML UDC PO SCH (07:11)
[2016-09-20] MEDS: Pancrelipase CAP* 5,000 UNITS CAP PO SCH (07:11)
[2016-09-20] MEDS: Lithium Carbonate TAB* 300 MG PO SCH (07:11)
--- NOTE | 2016-09-20 07:52 | DCNOTE ---
Patient seen this morning with aide at bedside. Patient awoke briefly for exam, appears comfortable. Aide has no questions or concerns. On exam, RRR, s1 and s2 present, no m/g/r, trace rales in RLL field, otherwise clear, no LE edema. Will discharge home today on PO ABx to complete course for PNA.
--- NOTE | 2016-09-20 13:23 | DS ---
CC: Dr. Lunsford DISCHARGE SUMMARY: DATE OF ADMISSION: 09/18/16 DATE OF DISCHARGE: 09/20/16 PRIMARY CARE PHYSICIAN: Tomeka Lunsford MD PRINCIPAL DISCHARGE DIAGNOSIS: Community-acquired pneumonia. SECONDARY DIAGNOSES: 1. Autism. 2. Hypertension. 3. Cardiomyopathy. 4. Intellectual disability. STUDIES DONE DURING HOSPITALIZATION: Chest x-ray, impression: Small right basilar infiltrate. DISCHARGE MEDICATION REGIMEN: 1. Azithromycin 500 mg by mouth daily x2 days. 2. Cefpodoxime 200 mg by mouth every 12 hours as needed x5 days. 3. Tylenol 650 mg by mouth every 4 hours as needed for pain. 4. Bacitracin 1 application topically 2 times daily. 5. Chlorhexidine mouthwash 15 mL 2 times daily. 6. Colace 100 mg by mouth 3 times daily. 7. Ketoconazole 2% weekly. 8. Lactobacillus 1 capsule by mouth daily. 9. Lactulose 50 mL by mouth 2 times daily. 10. [place] carbonate 450 mg by mouth 2 times daily. 11. Loratadine 10 mg by mouth daily. 12. Nystatin/triamcinolone 1 application topical 2 times daily. 13. Omeprazole 40 mg by mouth daily. 14. Pancrelipase 1 capsule by mouth 3 times daily. 15. Simethicone 80 mg by mouth 2 times daily. 16. Tizanidine 4 gm by mouth 3 times daily. 17. Vitamin A and D 1 application topical 2 times daily. 18. Guaifenesin 5 mg by mouth every 4 hours as needed for cough. 19. Risperdal 0.5 mg by mouth daily. HISTORY OF PRESENT ILLNESS: Please see the full history and physical by Dr. Rogelio Meza for fu ll details. Briefly, Mrs. Hutchins is a 51-year-old female, resident of [facility] wit h past medical history as above who presented to the hospital with fever and agitation. The patient was found to have some mild hypotension as well as evidence of pneumonia on chest x-ray. There wer e no other clear sources of infection. The patient was started on IV antibiotics. The following day she seemed to continue to be a bit agitated. She was given 1 dose of lorazepam. The patient had 1 low-grade fever during the hospitalization of 100.0. The patient's agitation seemed to resolve. B lood counts were normal. She was discharged home to complete a course of oral antibiotics. She josemanuel l need to follow up with her PCP as an outpatient. TIME SPENT: Total time spent on this discharge, 40 minutes. This is a summary of the hospitalization. Please see the full medical record for further details. [id number]/[facility] #: [id number]
== END 2016-09-20 10:25 | disposition home or self-care (01) | DRG 194 ==
LOC: ED 19:54 → MED 09-19 02:46
PROVIDERS: ADMIT Hospitalist; ATTEND Hospitalist
DX: J18.9 Pneumonia, unspecified organism (principal); F73 Profound intellectual disabilities; I42.9 Cardiomyopathy, unspecified; M41.9 Scoliosis, unspecified; I95.9 Hypotension, unspecified; F84.0 Autistic disorder; J30.2 Other seasonal allergic rhinitis; M81.0 Age-related osteoporosis without current pathological fracture; I10 Essential (primary) hypertension; F41.9 Anxiety disorder, unspecified; Z99.3 Dependence on wheelchair; Z87.440 Personal history of urinary (tract) infections; Z88.8 Allergy status to other drugs, medicaments and biological substances; Z88.7 Allergy status to serum and vaccine
CPT/HCPCS: 36415; 71010; 80048; 80053; 80178; 81003; 81015; 83605; 84484; 85025; 85610; 85730; 86140; 87040; 87086; 87641; 87899; 94760; 99212; A9270-GY; G0463; J0456; J0696; J1644; J2270

== ENCOUNTER → 2016-10-23 10:47 | Emergency (ER) | payer MEDICARE, MEDICAID ==
[~2016-10-23 10:47] MED LIST: Acetaminophen TAB* 325 MG PO ONE; Phenazopyridine TAB* 100 MG PO ONE
--- NOTE | 2016-10-23 11:54 | ED ---
HPI Febrile Illness - HPI Summary HPI Summary: Patient presents from [facility]. Staff state she has had a low grade fever and verbalizing more than usual. This is at her baseline when she is having UTI 's or other pain. Last UTI >1 month ago. Staff state she has not had any falls , no open skin tears. She is currently being treated for a vaginal rash, but this has been improving with creams. Staff deny other recent injuries or problems. Eating, drinking OK. Breathing without issues. Staff deny cough, runny nose or other cold symptoms. - History of Current Complaint Chief Complaint: EDFever Time Seen by Provider: 10/23/16 11:01 Hx Obtained From: Patient Onset/Duration: Started Hours Ago Timing: Constant Temperature: 100.3 F Initial Severity: Mild Current Severity: Mild Pain Intensity: 0 Pain Scale Used: Adult Non Verbal Aggravating Factors: Nothing Alleviating Factors: Nothing Associated Signs and Symptoms: Other: - verbalizing more than usual - Risk Factors Pseudomonas Risk Factors: Repeated Antibiotics Past 3 months Serious Bacterial Infection Risk Factors: Negative - Additional Pertinent History Primary Care Physician: CANDIDA - Allergy/Home Medications Allergies/Adverse Reactions: Allergies Allergy/AdvReac Type Severity Reaction Status Date / Time Fluconazole [From Diflucan] Allergy Severe "DOESN'T Verified 03/18/16 20:41 SLEEP FOR DAYS & HITS HERSELF" Influenza Vaccines Allergy Severe Unknown Verified 03/18/16 20:41 Reaction Details PMH/Surg Hx/FS Hx/Imm Hx Previously Healthy: Yes Endocrine/Hematology History: Reports: Hx Anemia Denies: Hx Diabetes, Hx Thyroid Disease Cardiovascular History: Reports: Hx Hypertension - NEW 09/2015, Other Cardiovascular Problems/Disorders - Cardiomyopathy Respiratory History: Reports: Hx Seasonal Allergies, Other Respiratory Problems/ Disorders - PLEURAL EFFUSION IN 03/2013- TREATED WITH ABX Denies: Hx Asthma, Hx Chronic Obstructive Pulmonary Disease (COPD) GI History: Reports: Hx Diverticulosis, Other GI Disorders - hx of impaction/ INC OF STOOL Denies: Hx Ulcer History: Reports: Hx Kidney Infection Musculoskeletal History: Reports: Hx Back Problems, Hx Osteoporosis, Hx Scoliosis Sensory History: Reports: Other Sensory Impairments - Frequent ear infections Denies: Hx Contacts or Glasses, Hx Hearing Aid Opthamlomology History: Reports: Other Sensory Impairments - Frequent ear infections Denies: Hx Contacts or Glasses Neurological History: Reports: Hx Developmental Delay, Hx Seizures - LAST 1982, Other Neuro Impairments/Disorders - BEHAVORAL OUTBURSTS Psychiatric History: Reports: Hx Anxiety - ON MEDICATION FOR, Hx Autism - Cancer History Cancer Type, Location and Year: right breast mass - benign - Surgical History Surgery Procedure, Year, and Place: unclear - Immunization History Date of Tetanus Vaccine: UTD Date of Influenza Vaccine: 2012 Hx Pertussis Vaccination: No Immunizations Up to Date: Unable to Obtain/Confirm Infectious Disease History: Denies: Hx Clostridium Difficile, Hx Hepatitis, Hx Human Immunodeficiency Virus (HIV), Hx of Known/Suspected MRSA, Hx Shingles, Hx Tuberculosis, Hx Known/ Suspected VRE, Hx Known/Suspected VRSA, History Other Infectious Disease, Traveled Outside the [place] in Last 30 Days - Family History Known Family History: Positive: Unknown - unable to verbalize due to mr - Social History Occupation: Unemployed, Disabled Lives: Assisted Living Alcohol Use: None Hx Substance Use: No Substance Use Type: Reports: None Hx Tobacco Use: No Smoking Status (MU): Never Smoked Tobacco Have You Smoked in the Last Year: No Review of Systems Constitutional: Negative Eyes: Negative Cardiovascular: Negative Respiratory: Negative Positive: no symptoms reported, see HPI Musculoskeletal: Negative All Other Systems Reviewed And Are Negative: Yes Physical Exam Triage Information Reviewed: Yes Vital Signs On Initial Exam: Initial Vitals Temp Pulse Resp BP Pulse Ox 98.4 F 81 20 86/53 96 10/23/16 10:53 10/23/16 10:53 10/23/16 10:53 10/23/16 10:53 10/23/16 10:53 Vital Signs Reviewed: Yes Completion Of Physical Exam Limited Due To: Other - non-verbal patient Appearance: Positive: Ill-Appearing, Pain Distress Skin: Positive: Skin Color Reflects Adequate Perfusion Head/Face: Positive: Normal Head/Face Inspection Eyes: Positive: Normal, LOLA Neck: Positive: Supple, Nontender, No Lymphadenopathy Respiratory/Lung Sounds: Positive: Clear to Auscultation Cardiovascular: Positive: RRR Neurological: Positive: Facial Symmetry Psychiatric: Positive: Normal AVPU Assessment: Alert Diagnostics - Vital Signs Vital Signs Temp Pulse Resp BP Pulse Ox 10/23/16 10:53 98.4 F 81 20 86/53 96 - Laboratory Lab Statement: Any lab studies that have been ordered have been reviewed, and results considered in the medical decision making process. Course/Dx - Course Course Of Treatment: Bhakta catheter placed. Patient had recently urinated. Awaited for patient to produce more urine. UA shows trace leuks. Will defer at this time and await cultures. Lungs CTA. No other signs on physical exam to suggest bacterial illness, PNA or UTI. Will await cultures and encourage tylenol and pyridium for any perceived discomfort as well as fevers. Patient staff OK with plan and discharge. Return precautions given. - Febrile Illness Differential Diagnoses: Fever of Unknown Origin, Pneumonia, Other: - fever, UTI - Diagnoses Provider Diagnoses: Fever of unknown origin Discharge - Discharge Plan Condition: Stable Disposition: HOME Prescriptions: Phenazopyridine TAB* [Pyridium 100 mg TAB*] 100 mg PO TID #12 tab Patient Education Materials: Fever in Adults (ED) Referrals: Tomeka Lunsford MD [Primary Care Provider] - Additional Instructions: This is likely a viral illness causing low grade temps I prefer not to obtain lab work today because I do not think it will change our course of treatment Tylenol and motrin may be given for temps above 100.5. Pyridium 100mg three times daily for any bladder spasms or pain We will await the urine results for a culture, and place her on antibiotics at that time if needed.
[2016-10-23 12:27] LABS: Urine Bacteria Absent (Absent); Urine Bilirubin Negative (Negative); Urine Glucose Negative (Negative); Urine Nitrite Negative (Negative)
[2016-10-23 14:11] VITALS: BP 96/72
--- NOTE | 2016-10-25 09:18 | ED ---
Progress - Progress Note Progress Note: Pt's urine reveals strep group b 1-10,000. Note indicates she is currently being treated for a vaginal rash. Will forward results to [facility] for follow-up care. colin Lincoln, aware. Course/Dx - Course Course Of Treatment: Bhakta catheter placed. Patient had recently urinated. Awaited for patient to produce more urine. UA shows trace leuks. Will defer at this time and await cultures. Lungs CTA. No other signs on physical exam to suggest bacterial illness, PNA or UTI. Will await cultures and encourage tylenol and pyridium for any perceived discomfort as well as fevers. Patient staff OK with plan and discharge. Return precautions given. - Diagnoses Provider Diagnoses: Fever of unknown origin
== END | disposition home or self-care (01) ==
LOC: ED 10:47
DX: R50.9 Fever, unspecified (principal)
CPT/HCPCS: 81003; 81015; 87086; 87088; 99282; A9270-GY

== ENCOUNTER 2016-11-07 10:20 | Observation (INO) | payer MEDICARE, MEDICAID ==
[2016-11-07] MEDS ORDERED: NS 0.9% 1000 ML* 1,000 ML IV ONE (11:41)
[2016-11-07 12:16] LABS: Hematocrit 34 % (35-47); Hemoglobin 11.2 g/dl (12.0-16.0); Mean Corpuscular HGB Conc 33 g/dl (31-36); Mean Corpuscular Hemoglobin 33 pg (27-31); Mean Corpuscular Volume 100 fL (80-97); Mean Platelet Volume 11 um3 (7.4-10.4); Red Blood Count 3.37 10^6/ul (4.0-5.4); Red Cell Distribution Width 12 % (10.5-15); White Blood Count 7.4 10^3/ul (3.5-10.8)
[2016-11-07 12:28] LABS: Albumin 3.9 g/dL (3.2-5.2); C Reactive Protein 7.28 mg/L (< 5.00); Calcium 9.6 mg/dL (8.6-10.3); Total Bilirubin 0.2 mg/dL (0.2-1.0); Total Protein 6.9 g/dL (6.4-8.9)
[2016-11-07 12:51] LABS: BUN/Creatinine Ratio 26.4 (8-20); EGFR African American 155.2 (>60); EGFR Non-African American 120.7 (>60)
[2016-11-07] MEDS ORDERED: Iohexol 300* (CONTRAST) 10 ML SDV IV ONE (13:19)
--- NOTE | 2016-11-07 14:42 | RAD ---
CLINICAL HISTORY: Constipation and distended abdomen in a patient with a history of small bowel obstructions COMPARISON: Most recent comparison CT of the abdomen and pelvis is dated March 18, 2016 TECHNIQUE: Contrast enhanced CT examination of the abdomen and pelvis from the lung bases through the initial tuberosities. The patient received 78 mL Omnipaque 300 intravenously prior to imaging.The patient received oral contrast as well prior to imaging. FINDINGS: The images are degraded by streak artifact caused by the patient's arms being at her side as opposed to above her head. VISUALIZED LUNG BASES: There is right greater than left dependent pleural thickening and likely small pleural effusions. The lung bases are otherwise grossly clear. ABDOMEN AND PELVIS: The liver, spleen, pancreas and adrenal glands are grossly normal in appearance. The gallbladder is normal. The kidneys are normal in appearance without focal mass, calcification or signs of hydronephrosis. There are contrast has progressed as far as the distal small bowel. There are air-fluid levels throughout the small bowel. The small bowel is not pathologically dilated according to strict size criteria. The appearance of air-fluid levels present throughout the colon as far as the rectum. The rectum measures nearly 7 cm in diameter. The mostly air-filled transverse colon measures just under 6 cm in diameter. There is no definite free intraperitoneal air. There is no gross retroperitoneal or mesenteric lymphadenopathy. The pelvic viscera is normal in appearance. The abdominal aorta and iliac arteries are normal in course and diameter. Degenerative changes include multilevel loss of intervertebral disc height involving the lower thoracic and lumbar spine.There are no sinister bone lesions. IMPRESSION: 1. There are air-fluid levels throughout the length of the small bowel and colon. The colon is dilated up to 7 cm in diameter. This dilatation extends as far as the rectum and is more consistent with ileus and/or toxic megacolon than focal obstruction. 2. Interval appearance of small pleural effusions with dependent pleural thickening relative to the March 18, 2016 CT examination.
[2016-11-07] MEDS ORDERED: Polyethylene Glycol 3350* 17 GM PACKET PO ONE (16:03)
[2016-11-07] MEDS ORDERED: Simethicone CHEW TAB* 80 MG PO PRN (16:05)
[2016-11-07] MEDS ORDERED: Sodium Phosphate ADULT ENEMA* 118 ml bottle PR PRN (16:05)
[2016-11-07] MEDS ORDERED: Nystatin CREAM* 15 GM TUBE TOPICAL PRN (16:05)
[2016-11-07] MEDS ORDERED: Acetaminophen TAB* 325 MG PO PRN (16:05)
[2016-11-07] MEDS ORDERED: NS 0.9% 1000 ML* 1,000 ML IV SCH (16:15)
[2016-11-07 16:26] LABS: Lithium 1.35 mmol/L (0.6-1.2)
--- NOTE | 2016-11-07 18:27 | ED ---
Kenyon Morrow Auryana, scribed for Hoang Bernabe MD on 11/07/16 at 1145 . Abdominal Pain/Female - HPI Summary HPI Summary: 51 year old female presents with abdominal pain starting 6 days ago. Trigonometry Teacher reports that the patient has had abdominal distention with infrequent bowel movements that are smaller than normal and abdominal pain - medical delivery driver reports that the patient "cringes" when trying to move her. Trigonometry Teacher reports that the patient's constipation was not improved by multiple enemas and recently had an XR showing "stool blockage". Trigonometry Teacher denies any fever, chills, vomiting, and reports normal eating habits and normal urination. Patient is not able to ambulate but is able to feed herself normally. PMHx is significant for diverticulitis, constipation, and bowel obstruction (per medical delivery driver - prone). Patient is currently on lithium and risperidone. No history of abdominal surgeries. 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 - History of Current Complaint Chief Complaint: EDAbdPain Stated Complaint: ABD PAIN Time Seen by Provider: 11/07/16 11:17 Hx Obtained From: Patient Hx Last Menstrual Period: N/A Onset/Duration: Gradual Onset, Lasting Days - 6, Still Present Timing: Constant Pain Intensity: 4 - patient unable to verbalize Pain Scale Used: 0-10 Numeric Associated Signs and Symptoms: Positive: Constipation, Other: - abdominal distention. Negative: Decreased Appetite, Nausea, Vomiting, Diarrhea Simlar Episode/Dx as:: per healthcare manager "patient is prone to bowel obstruction" Allergies/Adverse Reactions: Allergies Allergy/AdvReac Type Severity Reaction Status Date / Time Fluconazole [From Diflucan] Allergy Severe "DOESN'T Verified 11/07/16 10:25 SLEEP FOR DAYS & HITS HERSELF" Influenza Vaccines Allergy Severe Unknown Verified 11/07/16 10:25 Reaction Details Home Medications: Home Medications Nystatin CREAM* 1 applic TOPICAL BID PRN 11/07/16 [History Confirmed 11/07/16] Oral Rinse (Biotene)(NF) [Biotene Dry Mouth Oral Rinse(NF)] 1 liq MT BID [History Confirmed 11/07/16] Simethicone CHEW TAB* [Mylicon*] 160 mg PO TID PRN 11/07/16 [History Confirmed 11/07/16] Sodium Phosphate ADULT ENEMA* [Fleet Enema*] 1 enema MS EVERY OTHER DAY PRN [History Confirmed 11/07/16] Zinc Oxide (Topical) [Desitin] 1 applic TOPICAL TID PRN 11/07/16 [History Confirmed 11/07/16] PMH/Surg Hx/FS Hx/Imm Hx Endocrine/Hematology History: Reports: Hx Anemia Denies: Hx Diabetes, Hx Thyroid Disease Cardiovascular History: Reports: Hx Hypertension - NEW 09/2015, Other Cardiovascular Problems/Disorders - Cardiomyopathy Respiratory History: Reports: Hx Seasonal Allergies, Other Respiratory Problems/ Disorders - PLEURAL EFFUSION IN 03/2013- TREATED WITH ABX Denies: Hx Asthma, Hx Chronic Obstructive Pulmonary Disease (COPD) GI History: Reports: Hx Diverticulosis, Other GI Disorders - hx of impaction/ INC OF STOOL Denies: Hx Ulcer History: Reports: Hx Kidney Infection Musculoskeletal History: Reports: Hx Back Problems, Hx Osteoporosis, Hx Scoliosis Sensory History: Reports: Other Sensory Impairments - Frequent ear infections Denies: Hx Contacts or Glasses, Hx Hearing Aid Opthamlomology History: Reports: Other Sensory Impairments - Frequent ear infections Denies: Hx Contacts or Glasses Neurological History: Reports: Hx Developmental Delay, Hx Seizures - LAST 1982, Other Neuro Impairments/Disorders - BEHAVORAL OUTBURSTS Psychiatric History: Reports: Hx Anxiety - ON MEDICATION FOR, Hx Autism - Cancer History Cancer Type, Location and Year: right breast mass - benign - Surgical History Surgery Procedure, Year, and Place: unclear - Immunization History Date of Tetanus Vaccine: UTD Date of Influenza Vaccine: 2012 Infectious Disease History: No Infectious Disease History: Denies: Hx Clostridium Difficile, Hx Hepatitis, Hx Human Immunodeficiency Virus (HIV), Hx of Known/Suspected MRSA, Hx Shingles, Hx Tuberculosis, Hx Known/ Suspected VRE, Hx Known/Suspected VRSA, History Other Infectious Disease, Traveled Outside the [place] in Last 30 Days - Family History Known Family History: Positive: Unknown - unable to verbalize due to mr Family History: Level 5 caveat - NON-VERBAL MR. - Social History Lives: Long-Term Alcohol Use: None Hx Substance Use: No Substance Use Type: Reports: None Hx Tobacco Use: No Smoking Status (MU): Never Smoked Tobacco Have You Smoked in the Last Year: No Review of Systems - ROS Summary Review of Systems Summary: Level 5 caveat - NON-VERBAL MR. Negative: Fever Positive: Abdominal Pain, Other - constipation/infrequent bowel movements and abdominal distention All Other Systems Reviewed And Are Negative: No Physical Exam - Summary Physical Exam Summary: The patient is well-nourished. Level 5 caveat - NON-VERBAL MR. The skin is warm and dry and pale. HEENT: The head is normocephalic and atraumatic. The pupils are equal and reactive. The conjunctivae are clear and without drainage. Nares are patent and without drainage. The ear canals are patent and without drainage. The tympanic membranes are intact. Patient was not cooperative to asses mucous membranes. Neck is supple with full range of motion and non-tender. There are no carotid bruits. There is no neck vein distension. Respiratory: Chest is non-tender. Lungs are clear to auscultation and breath sounds are symmetrical and equal. Cardiovascular: Heart is regular rate and rhythm. There is no murmur or rub auscultated. There is no peripheral edema and pulses are symmetrical and equal. Abdomen: The abdomen is soft and distended. Diminished bowel sounds. There is no organomegaly palpated. Unable to tell if patient is in pain when palpating abdomen. Musculoskeletal: There is no back pain noted. Extremities are non-tender. There is good capillary refill. There is no peripheral edema or calf tenderness elicited. There are good pulses. Neurological: Cranial nerves are grossly intact. Deep tendon reflexes are symmetrical and equal in all four extremities. Psychiatric: The patient has an appropriate affect. Triage Information Reviewed: Yes Vital Signs On Initial Exam: Initial Vitals Temp Pulse Resp BP Pulse Ox 99.7 F 81 18 141/110 95 11/07/16 10:25 11/07/16 10:25 11/07/16 10:25 11/07/16 10:25 11/07/16 10:25 Vital Signs Reviewed: Yes Completion Of Physical Exam Limited Due To: Level 5 - Level 5 caveat - NON- VERBAL MR. - Enrique Coma Scale Coma Scale Total: 15 Diagnostics - Vital Signs Vital Signs Temp Pulse Resp BP Pulse Ox 11/07/16 11:00 110/75 11/07/16 10:40 95 97 11/07/16 10:38 91 96 11/07/16 10:36 119/75 11/07/16 10:25 99.7 F 81 18 141/110 95 - Laboratory Lab Results: Lab Results 11/07/16 11/07/16 11/07/16 Range/Units 12:04 12:04 12:04 WBC 7.4 (3.5-10.8) 10^3/ul RBC 3.37 L (4.0-5.4) 10^6/ul Hgb 11.2 L (12.0-16.0) g/dl Hct 34 L (35-47) % MCV 100 H (80-97) fL MCH 33 H (27-31) pg MCHC 33 (31-36) g/dl RDW 12 (10.5-15) % Plt Count 177 (150-450) 10^3/ul MPV 11 H (7.4-10.4) um3 Neut % (Auto) 66.7 (38-83) % Lymph % (Auto) 23.1 L (25-47) % Cook % (Auto) 6.5 (1-9) % Eos % (Auto) 3.2 (0-6) % Baso % (Auto) 0.5 (0-2) % Absolute Neuts (auto) 5.0 (1.5-7.7) 10^3/ul Absolute Lymphs (auto) 1.7 (1.0-4.8) 10^3/ul Absolute Monos (auto) 0.5 (0-0.8) 10^3/ul Absolute Eos (auto) 0.2 (0-0.6) 10^3/ul Absolute Basos (auto) 0 (0-0.2) 10^3/ul Absolute Nucleated RBC 0 10^3/ul Nucleated RBC % 0 Sodium 138 (133-145) mmol/L Potassium 4.0 (3.5-5.0) mmol/L Chloride 109 (101-111) mmol/L Carbon Dioxide 25 (22-32) mmol/L Anion Gap 4 (2-11) mmol/L BUN 14 (6-24) mg/dL Creatinine 0.53 (0.51-0.95) mg/dL Est GFR ( Amer) 155.2 (>60) Est GFR (Non-Af Amer) 120.7 (>60) BUN/Creatinine Ratio 26.4 H (8-20) Glucose 86 (70-100) mg/dL Lactic Acid 1.0 (0.5-2.0) mmol/L Calcium 9.6 (8.6-10.3) mg/dL Total Bilirubin 0.20 (0.2-1.0) mg/dL AST 13 (13-39) U/L ALT 14 (7-52) U/L Alkaline Phosphatase 49 (34-104) U/L C-Reactive Protein 7.28 H (< 5.00) mg/L Total Protein 6.9 (6.4-8.9) g/dL Albumin 3.9 (3.2-5.2) g/dL Globulin 3.0 (2-4) g/dL Albumin/Globulin Ratio 1.3 (1-3) Amylase 82 (29-103) U/L Lipase 24 (11.0-82.0) U/L [place] 1.35 H (0.6-1.2) mmol/L Result Diagrams: 11/07/16 12:04 11/07/16 12:04 Lab Statement: Any lab studies that have been ordered have been reviewed, and results considered in the medical decision making process. - CT ABD/PEL CT Interpretation: Positive (See Comments) - IMPRESSION: 1. There are air- fluid levels throughout the length of the small bowel and colon. The colon is dilated up to 7 cm in diameter. This dilatation extends as far as the rectum and is more consistent with ileus and/or toxic megacolon than focal obstruction. 2. Interval appearance of small pleural effusions with dependent pleural thickening relative to the March 18, [address] Interpretation Completed By: Radiologist Re-Evaluation - Re-Evaluation First Eval Re-Evaluation Time: 15:07 - discussed lab results and plan of action with medical delivery driver Abdominal Pain Fem Course/Dx - Course Course Of Treatment: 51 year old female presents with abdominal pain starting 6 days ago. Trigonometry Teacher reports that the patient has had abdominal distention with infrequent bowel movements that are smaller than normal and abdominal pain - medical delivery driver reports that the patient "cringes" when trying to move her. Trigonometry Teacher reports that the patient's constipation was not improved by multiple enemas and recently had an XR showing "stool blockage". Trigonometry Teacher denies any fever, chills , vomiting, and reports normal eating habits and normal urination. Patient is not able to ambulate but is able to feed herself normally. PMHx is significant for diverticulitis, constipation, and bowel obstruction (per medical delivery driver - prone) . Patient is currently on lithium and risperidone. No history of abdominal surgeries. 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 In ED course, the patient was given IV fluids. Blood work shows RBC 3.37, Hgb 11.2, Hct 34, lactic acid 1.0, BUN/Creatinine 26.4, CRP 7.28, lipase 24, amylase 82. [place] 1.35. CT ABD/PEL IMPRESSION: 1. There are air-fluid levels throughout the length of the small bowel and colon. The. colon is dilated up to 7 cm in diameter. This dilatation extends as far as the rectum and. is more consistent with ileus and/or toxic megacolon than focal obstruction. 2. Interval appearance of small pleural effusions with dependent pleural thickening. relative to the March 18, 2016 CT examination. On re-evaluation, imaging was discussed. Dr. Douglas (hospitalist at 15:05) was consulted for admission and she agreed to evaluate the patient in the ED. After evaluation, Dr. Douglas agrees to admit the patient to [facility] (16:00). Patient will be admitted to [facility] for further management and observation. Patients medical delivery driver agrees and understands. Dx: toxic megacolon. - Diagnoses Differential Diagnosis: Positive: Bowel Obstruction, Other - toxic megacolon, Provider Diagnoses: Toxic megacolon - Provider Notifications Discussed Care Of Patient With: Li Douglas Time Discussed With Above Provider: 15:05 - will see patient in ED and evaluate for admission Instructed by Provider To: Admit As Observation Discharge - Discharge Plan Condition: Stable Disposition: ADMITTED TO [facility] documentation as recorded by the Kenyon gonsalez Auryana accurately reflects the service I personally performed and the decisions made by , Hoang Bernabe MD.
[2016-11-07] MEDS: Pancrelipase CAP* 5,000 UNITS CAP PO SCH (19:32)
[2016-11-07] MEDS: Polyethylene Glycol 3350* 17 GM PACKET PO SCH (20:12)
[2016-11-07] MEDS: Docusate CAP* 100 MG PO SCH (20:17)
[2016-11-07] MEDS: Lithium Carbonate TAB* 300 MG PO SCH (20:19)
[2016-11-07] MEDS: Simethicone CHEW TAB* 80 MG PO SCH (20:22)
[2016-11-07] MEDS: Acetaminophen TAB* 325 MG PO SCH (20:22)
[2016-11-07] MEDS: tiZANidine TAB* 2 MG PO SCH (20:22)
[2016-11-07] MEDS: Heparin VIAL(*) 5000 UNITS/ML VIAL (FIVE THOUSAND) SUBCUT SCH (20:26)
--- NOTE | 2016-11-08 03:08 | HP ---
CC: Dr. Lunsford HISTORY AND PHYSICAL: DATE OF ADMISSION: 11/07/16 PRIMARY CARE PROVIDER: Dr. Lunsford. CHIEF COMPLAINT: Abdominal pain and lack of bowel movement. HISTORY OF PRESENT ILLNESS: Ms. Hutchins is a 51-year-old female resident of [facility], who is nonverbal at baseline and does not walk, who presented to the emergency room with her caregivers who state that she has been hitting her abdomen and normal bowel movement since 10/31/16. The patient has been receiving every other day enemas without significant response. She did have a small bowel movement a couple of days ago, but her caregivers state that she normally has 1 to 2 large bowel movements per day. This is abnormal, therefore they brought her to emergency room for evaluation. PAST MEDICAL HISTORY: 1. Intellectual developmental delay. 2. Hypertension. 3. Cardiomyopathy. MEDICATIONS: 1. Nystatin cream apply topically twice daily p.r.n. rash. 2. Ketoconazole shampoo apply topically twice weekly. 3. MiraLAX 17 g p.o. daily. 4. Biotin, to be used when brushing her teeth twice daily. 5. Multivitamin 1 tablet p.o. daily. 6. Colace 100 mg p.o. b.i.d. 7. Tylenol 650 mg p.o. b.i.d. and q.4 h. p.r.n. pain. 8. Fleet Enema 1 enema [place] every other day p.r.n. constipation. 9. Loratadine 10 mg p.o. daily. 10. Lactobacillus 1 capsule p.o. daily. 11. Ferrous sulfate 142 mg p.o. daily. 12. Zinc oxide apply topically t.i.d. p.r.n. rash. 13. Tizanidine 4 mg p.o. t.i.d. 14. Guaifenesin 10 mL p.o. q.4 h. p.r.n. cough. 15. Vitamin A and D 1 application topical twice daily p.r.n. skin irritation. 16. Bacitracin ointment apply topically twice daily p.r.n. skin irritation. 17. Pancrelipase 6000 units p.o. t.i.d. a.c. 18. Omeprazole 40 mg p.o. daily. 19. [place] carbonate 450 mg p.o. b.i.d. 20. Lactulose 15 mL p.o. b.i.d. 21. Chlorhexidine mouthwash 15 mL to be used to brush teeth twice daily. 22. Simethicone 80 mg p.o. b.i.d. and 160 mg p.o. t.i.d. p.r.n. gas distention. 23. Risperidone 0.5 mg p.o. daily. ALLERGIES: FLUCONAZOLE and INFLUENZA VACCINE. FAMILY HISTORY: Unobtainable. SOCIAL HISTORY: The patient does not smoke or drink. She lives at a [facility]. REVIEW OF SYSTEMS: Unobtainable from the patient as she is not verbal. PHYSICAL EXAMINATION GENERAL: The patient is a well-developed middle-aged female, lying in the stretcher alert, but in no acute distress. VITAL SIGNS: Blood pressure 119/72, pulse 82, respirations 18, temperature 99.7 , O2 saturation 99% on room air. HEENT: Pupils are equal, they are round. Extraocular muscles are intact. Oropharynx is clear. Oral mucosa is moist. There is no submandibular, cervical or supraclavicular adenopathy. Thyroid is not enlarged. No thyroid nodules are noted. PULMONARY: Lungs are clear to auscultation bilaterally. CARDIAC: Normal S1 and S2. Regular rate and rhythm. I do not appreciate any lower extremity edema. ABDOMEN: Bowel sounds are present. Abdomen is soft, moderately distended. Nontender to palpation. MUSCULOSKELETAL: There is no cyanosis or clubbing of the digits. SKIN: Warm and dry. There are no rashes. NEURO: Cranial nerves II through XII appear to be grossly intact. Rest of the neuro exam is unable to be performed as the patient does not cooperate. PSYCH: The patient again is alert but she is nonverbal. LABORATORY DATA/DIAGNOSTIC STUDIES: WBC 7.4, hemoglobin 11.2, hematocrit 34, platelets 177,000. Sodium 138, potassium 4.0, chloride 109, CO2 25, BUN 14, creatinine 0.53, glucose 86, lactic acid 1.0, calcium 9.6, bilirubin 0.2, AST 13 , ALT 14, alkaline phosphatase 49, CRP 7.28, albumin 3.9, amylase 82, lipase 24. [place] 1.35. CT of the abdomen and pelvis reveals air-fluid levels throughout the length of the small bowel and colon. The colon is dilated up to 7 cm in diameter. The distention extends as far as the rectum and is more consistent with ileus and/ or toxic megacolon than focal obstruction. There is interval appearance of small pleural effusions with dependent pleural thickening relative to 03/18/16 exam. ASSESSMENT/PLAN: Ms. Hutchins is a 51-year-old female, who has a longstanding history of constipation issues for which she is on Colace, MiraLAX, lactulose and prune juice on a daily basis, who presented to the emergency room due to lack of normal bowel movement in 7 days. 1. Constipation. I suspect the basis of the patient's constipation is due to her lack of mobility. The patient has a distended colon, which is likely chronic. The patient also has a significant amount of gas upon my evaluation on the CT scan. The lactulose perhaps is causing some of this gaseous distention. For now, we will go ahead and admit the patient and aggressively treat her constipation with increasing her MiraLAX frequency. We will increase this up to 3 times daily. We will monitor for bowel movement. For now, I will hold her lactulose. She has not been having any vomiting, therefore I do not believe that she needs to be n.p.o., however, I will give her just clear liquids at this time. 2. Intellectual developmental delay. The patient will be maintained on her usual doses of lithium and risperidone. 3. DVT prophylaxis. According to the Adult Thrombosis Prophylaxis Risk Factor Assessment Guide, the patient has a total risk factor score of 2 making her moderate risk. She will be placed on heparin 5000 subcutaneous q. 12h. 4. Code status is full. The patient's surrogate decision maker is not clear as the patient is a resident at [facility]. TIME SPENT: 50 minutes was spent admitting this patient. [id number]/[facility] #: [id number] JEREMI
[2016-11-08] MEDS: Pancrelipase CAP* 5,000 UNITS CAP PO SCH ×2 (08:49→12:28)
[2016-11-08] MEDS: Acetaminophen TAB* 325 MG PO SCH (08:50)
[2016-11-08] MEDS: Docusate CAP* 100 MG PO SCH (08:50)
[2016-11-08] MEDS: Polyethylene Glycol 3350* 17 GM PACKET PO SCH ×2 (08:51→13:36)
[2016-11-08] MEDS: Simethicone CHEW TAB* 80 MG PO SCH (08:52)
[2016-11-08] MEDS: tiZANidine TAB* 2 MG PO SCH ×2 (08:52→13:36)
[2016-11-08] MEDS: Heparin VIAL(*) 5000 UNITS/ML VIAL (FIVE THOUSAND) SUBCUT SCH (08:53)
[2016-11-08] MEDS: Lithium Carbonate TAB* 300 MG PO SCH (08:53)
[2016-11-08] MEDS ORDERED: risperiDONE TAB* 1 MG PO SCH (09:00)
[2016-11-08] MEDS ORDERED: Prenatal Vitamin TAB PO SCH (09:00)
[2016-11-08] MEDS ORDERED: Omeprazole CAP* 20 MG PO SCH (09:00)
[2016-11-08] MEDS ORDERED: Lactobacillus Acidophilu (GG)* 1 CAP CAP PO SCH (09:00)
--- NOTE | 2016-11-08 11:14 | PN ---
Subjective Date of Service: 11/08/16 Interval History: Pt is non-verbal. Objective Active Medications: Acetaminophen (Tylenol Tab*) 650 mg PO BID [facility] Last Admin: 11/08/16 08:50 Dose: 650 mg Acetaminophen (Tylenol Tab*) 650 mg PO Q4H PRN PRN Reason: PAIN Docusate Sodium (Colace Cap*) 200 mg PO BID [facility] Last Admin: 11/08/16 08:50 Dose: 200 mg Heparin Sodium (Porcine) (Heparin Vial(*)) 5,000 units SUBCUT Q12HR [facility] Last Admin: 11/08/16 08:53 Dose: 5,000 units Lactobacillus Rhamnosus (Culturelle*) 1 cap PO DAILY [facility] Last Admin: 11/08/16 08:51 Dose: 1 cap [place] Carbonate ([place] Carbonate Tab*) 450 mg PO BID [facility] Last Admin: 11/08/16 08:53 Dose: 450 mg Multivitamins ( Vitamin Tab*) 1 tab PO DAILY [facility] Last Admin: 11/08/16 08:51 Dose: 1 tab Nystatin (Nystatin Cream*) 1 applic TOPICAL BID PRN PRN Reason: RASH Omeprazole (Prilosec Cap*) 40 mg PO DAILY [facility] Last Admin: 11/08/16 08:51 Dose: 40 mg Pancrelipase (Zenpep Delayed Cap*) 5,000 units PO TID AC [facility] Last Admin: 11/08/16 08:49 Dose: 5,000 units Polyethylene Glycol/Electrolytes (Miralax*) 17 gm PO TID [facility] Last Admin: 11/08/16 08:51 Dose: 17 gm Risperidone (Risperdal*) 0.5 mg PO DAILY [facility] Last Admin: 11/08/16 08:51 Dose: 0.5 mg Simethicone (Mylicon*) 80 mg PO BID [facility] Last Admin: 11/08/16 08:52 Dose: 80 mg Simethicone (Mylicon*) 160 mg PO TID PRN PRN Reason: gas bloating Sodium Biphosphate/Sodium Phosphate (Fleet Enema*) 1 bottle RI EVERY OTHER DAY PRN PRN Reason: no BM Last Admin: 11/07/16 23:23 Dose: 1 bottle Tizanidine HCl (Zanaflex Tab*) 4 mg PO TID [facility] Last Admin: 11/08/16 08:52 Dose: 4 mg Vital Signs 11/07/16 11/07/16 11/07/16 16:30 17:00 17:27 Temperature Pulse Rate 84 79 Respiratory 18 Rate Blood Pressure 144/101 126/79 (mmHg) O2 Sat by Pulse 98 99 Oximetry 11/07/16 11/07/16 11/07/16 17:30 18:00 18:38 Temperature 98.7 F Pulse Rate 81 80 73 Respiratory 12 Rate Blood Pressure 120/80 132/74 127/72 (mmHg) O2 Sat by Pulse 98 99 89 Oximetry 11/07/16 11/07/16 11/07/16 20:00 20:07 23:44 Temperature 98.5 F 99.3 F Pulse Rate 93 78 Respiratory 18 18 18 Rate Blood Pressure 153/72 104/67 (mmHg) O2 Sat by Pulse 92 100 Oximetry 11/08/16 11/08/16 04:02 07:50 Temperature 99.4 F 99.4 F Pulse Rate 90 88 Respiratory 20 18 Rate Blood Pressure 132/75 108/61 (mmHg) O2 Sat by Pulse 96 98 Oximetry Oxygen Devices in Use Now: None Appearance: Middle aged female lying in bed, NAD Eyes: No Scleral Icterus Ears/Nose/Mouth/Throat: Mucous Membranes Moist Respiratory: Symmetrical Chest Expansion and Respiratory Effort, Clear to Auscultation Cardiovascular: NL Sounds; No Murmurs; No JVD, RRR, No Edema Abdominal: NL Sounds; No Tenderness; No Distention, - - abdomen soft, seems slightly less distended Extremities: No Clubbing, Cyanosis Skin: No Rash or Ulcers, No Nodules or Sclerosis Neurological: - - awake Result Diagrams: 11/07/16 12:04 11/07/16 12:04 Additional Lab and Data: Lab Results 11/07/16 11/07/16 11/07/16 Range/Units 12:04 12:04 12:04 WBC 7.4 (3.5-10.8) 10^3/ul RBC 3.37 L (4.0-5.4) 10^6/ul Hgb 11.2 L (12.0-16.0) g/dl Hct 34 L (35-47) % MCV 100 H (80-97) fL MCH 33 H (27-31) pg MCHC 33 (31-36) g/dl RDW 12 (10.5-15) % Plt Count 177 (150-450) 10^3/ul MPV 11 H (7.4-10.4) um3 Neut % (Auto) 66.7 (38-83) % Lymph % (Auto) 23.1 L (25-47) % [place] % (Auto) 6.5 (1-9) % Eos % (Auto) 3.2 (0-6) % Baso % (Auto) 0.5 (0-2) % Absolute Neuts (auto) 5.0 (1.5-7.7) 10^3/ul Absolute Lymphs (auto) 1.7 (1.0-4.8) 10^3/ul Absolute Monos (auto) 0.5 (0-0.8) 10^3/ul Absolute Eos (auto) 0.2 (0-0.6) 10^3/ul Absolute Basos (auto) 0 (0-0.2) 10^3/ul Absolute Nucleated RBC 0 10^3/ul Nucleated RBC % 0 Sodium 138 (133-145) mmol/L Potassium 4.0 (3.5-5.0) mmol/L Chloride 109 (101-111) mmol/L Carbon Dioxide 25 (22-32) mmol/L Anion Gap 4 (2-11) mmol/L BUN 14 (6-24) mg/dL Creatinine 0.53 (0.51-0.95) mg/dL Est GFR ( Amer) 155.2 (>60) Est GFR (Non-Af Amer) 120.7 (>60) BUN/Creatinine Ratio 26.4 H (8-20) Glucose 86 (70-100) mg/dL Lactic Acid 1.0 (0.5-2.0) mmol/L Calcium 9.6 (8.6-10.3) mg/dL Total Bilirubin 0.20 (0.2-1.0) mg/dL AST 13 (13-39) U/L ALT 14 (7-52) U/L Alkaline Phosphatase 49 (34-104) U/L C-Reactive Protein 7.28 H (< 5.00) mg/L Total Protein 6.9 (6.4-8.9) g/dL Albumin 3.9 (3.2-5.2) g/dL Globulin 3.0 (2-4) g/dL Albumin/Globulin Ratio 1.3 (1-3) Amylase 82 (29-103) U/L Lipase 24 (11.0-82.0) U/L [place] 1.35 H (0.6-1.2) mmol/L Assess/Plan/Problems-Billing Ms Hutchins is a 51 yo F with chronic constipation and intellectual developmental delay who presented to the ER with no BM for several days. - Patient Problems (1) Constipation, chronic Current Visit: Yes Status: Acute Code(s): K59.09 - OTHER CONSTIPATION SNOMED Code(s): 902878677 Comment: The patient had a large BM last night. Will keep the patient on miralax 3x daily. Will stop lactulose as it can be causing a large amount of gaseous distention. The miralax dose can go up or down based on how frequent her BMs are. (2) Colon distention Current Visit: Yes Status: Acute Code(s): K63.89 - OTHER SPECIFIED DISEASES OF INTESTINE SNOMED Code(s): 097668492 Comment: Likely chronic in nature. The patient's custodial can continue to work on aggressive turning and positioning to help facilitate colonic transit. (3) Developmental disability Current Visit: Yes Status: Acute Comment: Continue home medications. (4) DVT prophylaxis Current Visit: Yes Status: Acute Code(s): BSD0820 - SNOMED Code(s): 391373487 Comment: SQ heparin (5) Full code status Current Visit: Yes Status: Acute Code(s): Z78.9 - OTHER SPECIFIED HEALTH STATUS SNOMED Code(s): 711077484
[2016-11-08 15:39] VITALS: BP 106/63
--- NOTE | 2016-11-09 15:05 | DS ---
CC: Dr. Lunsford * DISCHARGE SUMMARY: DATE OF ADMISSION: 11/07/16 DATE OF DISCHARGE: 11/08/16 PRIMARY CARE PROVIDER: Dr. Lunsford. PRINCIPAL DIAGNOSIS: Severe constipation with distended colon. SECONDARY DIAGNOSIS: Intellectual developmental delay. DISCHARGE MEDICATIONS: 1. Nystatin cream apply topically twice daily p.r.n. rash. 2. Ketoconazole shampoo apply topically twice weekly. 3. Biotin to be used twice daily when brushing teeth. 4. Multivitamin 1 tab p.o. daily. 5. Tylenol 650 mg p.o. b.i.d. and q.4 hours p.r.n. pain. 6. Fleet Enema, 1 enema AL every other day p.r.n. constipation. 7. Claritin 10 mg p.o. daily. 8. Lactobacillus 1 cap p.o. daily. 9. Ferrous sulfate 142 mg p.o. daily. 10. Zinc oxide 1 application topical t.i.d. p.r.n. rash. 11. Tizanidine 4 mg p.o. t.i.d. 12. Guaifenesin 10 mL p.o. q.4 hours p.r.n. cough. 13. Vitamin A and D ointment apply topically twice daily p.r.n. skin irritation. 14. Bacitracin ointment apply topically twice daily p.r.n. skin irritation. 15. Pancrelipase 6000 units p.o. t.i.d. a.c. 16. Omeprazole 40 mg p.o. daily. 17. [place] carbonate 450 mg p.o. b.i.d. 18. Chlorhexidine mouth wash to be used twice daily when brushing teeth. 19. Simethicone 80 mg p.o. b.i.d. and 160 mg p.o. t.i.d. p.r.n. gas distention. 20. Risperidone 0.5 mg p.o. daily. 21. MiraLAX 17 g p.o. t.i.d. (new frequency). 22. Colace 200 mg p.o. b.i.d. (new dose). Discontinued medications: 1. Lactulose. HOSPITAL COURSE: Ms. Hutchins is a 51-year-old female with intellectual developmental delay and history of chronic constipation, who presented to the emergency room with her aide stating that she had not had a normal bowel movement in approximately 1 week. The patient underwent a CT scan, which revealed markedly distended colon, which was filled with stool. The patient has a longstanding history of chronic constipation evidenced by her on a daily basis. The patient did have a somewhat abrupt change approximately 1 week prior to admission, in that she has not been moving her bowels regularly. The patient did have significant gas distention noted on the CT scan. The decision was made to stop the lactulose and change her MiraLAX to 3 times daily. The patient did have a very large bowel movement at approximately 1:40 a.m. on 11/08/16. She has been eating without any vomiting or signs of discomfort. At this point, the patient is felt to be stable for discharge back home to [facility]. The patient will continue on MiraLAX 3 times daily and if this does not produce a daily bowel movement, this dose can be increased to 4 times daily. If 3 times daily is too much and the patient is having liquid stools, this can be decreased to twice daily. FOLLOWUP CONCERNS: The patient is being discharged home today, 11/08/16. She should follow up with Dr. Lunsford in the next 4 to 7 days. ACTIVITY LEVEL: As tolerated. DIET: Regular. CONDITION ON DISCHARGE: Stable. TIME SPENT: Twenty five minutes were spent discharging this patient. [id number]/CPS #: [id number] MTDD
== END 2016-11-08 16:15 | disposition home or self-care (01) ==
LOC: ED 10:20 → MEDTELE 16:03
PROVIDERS: ADMIT Hospitalist; ATTEND Hospitalist
DX: K59.00 Constipation, unspecified (principal); K63.89 Other specified diseases of intestine; F81.9 Developmental disorder of scholastic skills, unspecified; I10 Essential (primary) hypertension; I42.9 Cardiomyopathy, unspecified; Z79.899 Other long term (current) drug therapy; Z88.8 Allergy status to other drugs, medicaments and biological substances
CPT/HCPCS: 36415; 74177; 80053; 80178; 82150; 83605; 83690; 85025; 86140; 96360; 96361; 96372; 99284; A9270-GY; G0378; J1644; Q9967

== ENCOUNTER 2016-12-28 16:14 | Emergency (ER) | payer MEDICARE, MEDICAID ==
--- NOTE | 2016-12-28 18:29 | RAD ---
HISTORY: Fever COMPARISONS: September 18, 2016 VIEWS: 2: Frontal and lateral views of the chest. FINDINGS: CARDIOMEDIASTINAL SILHOUETTE: The cardiomediastinal silhouette is normal. BLESSING: The blessing are normal. PLEURA: The costophrenic angles are sharp. No pleural abnormalities are noted. LUNG PARENCHYMA: The lungs are clear. ABDOMEN: The upper abdomen is clear. There is no subphrenic gas. BONES AND SOFT TISSUES: Degenerative changes are noted of the shoulders OTHER: None. IMPRESSION: NO ACTIVE CARDIOPULMONARY DISEASE.
[2016-12-28 19:39] VITALS: BP 126/79
--- NOTE | 2016-12-28 21:08 | ED ---
Suad Morrow Alfonso, scribed for Randal Acosta MD on 12/28/16 at 1807 . HPI Febrile Illness - HPI Summary HPI Summary: LEVEL 5 CAVEAT DUE TO PT NON VERBAL STATUS. This patient is a 51 year old F presenting from a senior living to [facility] accompanied by senior living employee with a chief complaint of febrile illness since earlier today. The patient rates the pain 0/10 in severity. Symptoms aggravated by nothing. Symptoms alleviated by nothing. senior living employee denies urinary symptoms. senior living employment reports other residents in the senior living are ill. Patient is nonverbal at baseline. - History of Current Complaint Chief Complaint: EDFever Time Seen by Provider: 12/28/16 17:33 Hx Obtained From: Family/Trimmer Helper Hx Last Menstrual Period: N/A Onset/Duration: Started Minutes Ago, Started Hours Ago, Still Present Timing: Constant Initial Severity: Mild Current Severity: Mild Pain Intensity: 0 Pain Scale Used: Adult Non Verbal Aggravating Factors: Nothing Alleviating Factors: Nothing Associated Signs and Symptoms: Negative - Additional Pertinent History Primary Care Physician: [id number] - Allergy/Home Medications Allergies/Adverse Reactions: Allergies Allergy/AdvReac Type Severity Reaction Status Date / Time Fluconazole [From Diflucan] Allergy Severe "DOESN'T Verified 11/07/16 10:25 SLEEP FOR DAYS & HITS HERSELF" Influenza Vaccines Allergy Severe Unknown Verified 11/07/16 10:25 Reaction Details PMH/Surg Hx/FS Hx/Imm Hx Endocrine/Hematology History: Reports: Hx Anemia Denies: Hx Diabetes, Hx Thyroid Disease Cardiovascular History: Reports: Hx Hypertension - NEW 09/2015, Other Cardiovascular Problems/Disorders - Cardiomyopathy Respiratory History: Reports: Hx Seasonal Allergies, Other Respiratory Problems/ Disorders - PLEURAL EFFUSION IN 03/2013- TREATED WITH ABX Denies: Hx Asthma, Hx Chronic Obstructive Pulmonary Disease (COPD) GI History: Reports: Hx Diverticulosis, Other GI Disorders - hx of impaction/ INC OF STOOL Denies: Hx Ulcer History: Reports: Hx Kidney Infection Musculoskeletal History: Reports: Hx Back Problems, Hx Osteoporosis, Hx Scoliosis Sensory History: Reports: Other Sensory Impairments - Frequent ear infections Denies: Hx Contacts or Glasses, Hx Hearing Aid Opthamlomology History: Reports: Other Sensory Impairments - Frequent ear infections Denies: Hx Contacts or Glasses Neurological History: Reports: Hx Developmental Delay, Hx Seizures - LAST 1982, Other Neuro Impairments/Disorders - BEHAVORAL OUTBURSTS Psychiatric History: Reports: Hx Anxiety - ON MEDICATION FOR, Hx Autism - Cancer History Cancer Type, Location and Year: right breast mass - benign - Surgical History Surgery Procedure, Year, and Place: unclear - Immunization History Date of Tetanus Vaccine: UTD Date of Influenza Vaccine: 2012 Infectious Disease History: No Infectious Disease History: Denies: Hx Clostridium Difficile, Hx Hepatitis, Hx Human Immunodeficiency Virus (HIV), Hx of Known/Suspected MRSA, Hx Shingles, Hx Tuberculosis, Hx Known/ Suspected VRE, Hx Known/Suspected VRSA, History Other Infectious Disease, Traveled Outside the [place] in Last 30 Days - Family History Known Family History: Positive: Unknown - unable to verbalize due to mr Family History: Level 5 caveat - NON-VERBAL MR. - Social History Alcohol Use: None Hx Substance Use: No Substance Use Type: Reports: None Hx Tobacco Use: No Smoking Status (MU): Never Smoked Tobacco Have You Smoked in the Last Year: No Review of Systems - ROS Summary Review of Systems Summary: LEVEL 5 CAVEAT DUE TO PT NON VERBAL STATUS. Positive: Fever Positive: no symptoms reported All Other Systems Reviewed And Are Negative: No Physical Exam Triage Information Reviewed: Yes Vital Signs On Initial Exam: Initial Vitals Temp Pulse Resp BP Pulse Ox 99.6 F 120 20 121/77 99 12/28/16 16:23 12/28/16 16:23 12/28/16 16:23 12/28/16 16:23 12/28/16 16:23 Vital Signs Reviewed: Yes Completion Of Physical Exam Limited Due To: Level 5 Appearance: Positive: Well-Appearing, No Pain Distress Skin: Positive: Warm, Skin Color Reflects Adequate Perfusion, Dry Head/Face: Positive: Normal Head/Face Inspection Eyes: Positive: Normal ENT: Positive: Normal ENT inspection Neck: Positive: Supple, Nontender Respiratory/Lung Sounds: Positive: Clear to Auscultation, Breath Sounds Present Cardiovascular: Positive: RRR Abdomen Description: Positive: Nontender, Soft Bowel Sounds: Positive: Present Musculoskeletal: Positive: Normal Neurological: Positive: Normal, Sensory/Motor Intact, Alert, Oriented to Person Place, Time Psychiatric: Positive: Other - Agitated Diagnostics - Vital Signs Vital Signs Temp Pulse Resp BP Pulse Ox 12/28/16 17:44 99.4 F 74 18 115/86 98 12/28/16 16:23 99.6 F 120 20 121/77 99 - Laboratory Lab Statement: Any lab studies that have been ordered have been reviewed, and results considered in the medical decision making process. - Radiology CXR Radiology Interpretation Completed By: Radiologist - NO ACTIVE CARDIOPULMONARY DISEASE. ED physician has reviewed this radiology report and agrees. Course/Dx - Course Course Of Treatment: Elham had a fever at the home. She was nontoxic here and no pneumonia on CXR (something she has had in the past). I think it's best to wait and see what's going to develop if anything. - Diagnoses Provider Diagnoses: Febrile illness, acute Discharge - Discharge Plan Condition: Stable Disposition: HOME Patient Education Materials: Fever in Adults (ED) Referrals: Tomeka Lunsford MD [Primary Care Provider] - 3 Days The documentation as recorded by the Suad gonsalez Alfonso accurately reflects the service I personally performed and the decisions made by me, Randal Acosta MD.
== END 2016-12-28 19:15 | disposition home or self-care (01) ==
LOC: ED 16:14
DX: R50.9 Fever, unspecified (principal); Z53.21 Procedure and treatment not carried out due to patient leaving prior to being seen by health care provider
CPT/HCPCS: 71020

== ENCOUNTER 2018-01-10 19:16 | Emergency (ER) | payer MEDICARE, MEDICAID ==
[2018-01-10 20:11] VITALS: BP 121/91
--- NOTE | 2018-01-10 21:31 | UC ---
HPI Febrile Illness - HPI Summary HPI Summary: 52 y/o female w/ PMHX Mentally disable and non verbal presents to the urgent care accompany by Home health aid from [facility]. Home thee Aid states Pt had a fever of 100.4F around 1800pm w/ chills. She states she had had UTI in the past. She states Pt is acting her normal, eating well, drinking fluids. She is urinating well and w/ a normal BM this morning. Pt usually gets Hydrocodone PO for pain Rx by her PCP DR Lunsford. She states Pt's body was hot w/ chills. Aid denies SOB, chest pain, abdominal pain, N/V/D. - History of Current Complaint Chief Complaint: UCGeneralIllness Time Seen by Provider: 01/10/18 20:51 Hx Obtained From: Family/Final Dressing Cutter - Home health aid from [facility] Hx Last Menstrual Period: N/A Onset/Duration: Started Hours Ago - 2hrs ago Timing: Intermittent Initial Severity: Mild Current Severity: Mild Pain Intensity: 0 Pain Scale Used: unable to desribe Aggravating Factors: Nothing Alleviating Factors: OTC Medicine Associated Signs and Symptoms: Negative - Risk Factors Pseudomonas Risk Factors: Negative Serious Bacterial Infection Risk Factors: Negative - Additional Pertinent History Primary Care Physician: [id number] - Allergy/Home Medications Allergies/Adverse Reactions: Allergies Allergy/AdvReac Type Severity Reaction Status Date / Time diclofenac [From Arthrotec] Allergy See Comment Verified 01/10/18 20:13 fluconazole [From Diflucan] Allergy See Comment Verified 01/10/18 20:13 Influenza Virus Vaccines Allergy Unknown Verified 01/10/18 20:13 Reaction Details misoprostol [From Arthrotec] Allergy See Comment Verified 01/10/18 20:13 Home Medications: Home Medications Alendronate (NF) [Fosamax (NF)] 70 mg PO Q30D 01/10/18 [History Confirmed ] Gabapentin CAP(*) [Neurontin 300 CAP(*)] 300 mg PO TID 01/10/18 [History Confirmed 01/10/18] PMH/Surg Hx/FS Hx/Imm Hx Previously Healthy: Yes Other Endocrine History: Osteoporosis Other GI/ History: Chronic constipation Other Neurological History: Neuropathy, mentally disable Psychological History: Bipolar Disorder - Surgical History Surgical History: Unable to Obtain/Confirm Surgery Procedure, Year, and Place: unclear - Family History Known Family History: Positive: Unknown - unable to verbalize due to mr Family History: Level 5 caveat - NON-VERBAL MR. - Social History Occupation: Disabled Lives: Nursing Home - [facility] Developmental Alcohol Use: None Substance Use Type: None Smoking Status (MU): Never Smoked Tobacco Have You Smoked in the Last Year: No - Immunization History Most Recent Influenza Vaccination: no allergiec Most Recent Pneumonia Vaccination: up to date Vaccination Up to Date: Yes Review of Systems Constitutional: Fever - low grade fever at home Skin: Negative Eyes: Negative ENT: Negative Respiratory: Negative Cardiovascular: Negative Gastrointestinal: Negative Genitourinary: Negative Motor: Negative Neurovascular: Negative Musculoskeletal: Negative Neurological: Negative Psychological: Negative Is Patient Immunocompromised?: No All Other Systems Reviewed And Are Negative: Yes Physical Exam - Summary Physical Exam Summary: Vital signs reviewed. General: well developed and nourished female awake and alert, not toxic appearing, No odors, Vital signs stable, no fever or tachycardia.Pt is non verbal and is sitting in her wheel chair w/o any apparent pain or reparatory distress Skin: [place] warm and dry, no lesions or rash, no surface trauma noted. HEENT: Head: scalp atraumatic, NT Eyes: sclera and conjunctiva clear, corneas grossly clear, PERRLA, EOMI, no nystagmus or disconjugate gaze, no ptosis. Corneal reflex intact. Fundoscopic exam. Ears: canals and TMs normal. No hemotympanum or Battles sign Nose/Face: atraumatic, NT no asymmetry. Mouth/Throat: Mucous membranes moist, posterior pharynx clear, normal gag reflex , no intraoral trauma. Neck: supple, FROM, NT, no lymphadenopathy, no meningismus. Chest: CTA, no wheezes, rhonchi, rales. Normal Tidal Volume, no retractions or accessory muscle use. No respiratory depression. Heart: RRR, no murmur, rub, or gallop. Abd: soft, NT, pulsatile mass, ascites, hepatosplenomegaly, suprapubic tender to palpation, or distension. Back: without spinal or CVA tenderness Extrems: decrease ROM of all extremities do to patient's condition, distal motor neurovascular intact. Neuro: Pt is non verbal, and cooperates w/ examiner to do physical exam. GCS 15 , CNII-XII grossly intact. No focal neurological deficits. Normal muscle strength and tone. Normal DTRs, negative Babinski, no pronator drift. unable to performed , gait or romberg test since Pt is bound to wheel chair. Triage Information Reviewed: Yes Vital Signs: Initial Vital Signs Temp 98.9 F 01/10/18 20:05 Pulse 102 01/10/18 20:05 Resp 20 01/10/18 20:05 BP 121/91 01/10/18 20:05 Pulse Ox 100 01/10/18 20:05 Course/Dx - Course Course Of Treatment: 52 y/o female w/ PMHX Mentally disable and non verbal presents to the urgent care accompany by Home health aid from [facility]. Home thee Aid states Pt had a fever of 100.4F around 1800pm w/ chills. She states she had had UTI in the past. She states Pt is acting her normal, eating well, drinking fluids. She is urinating well and w/ a normal BM this morning. Pt usually gets Hydrocodone PO for pain Rx by her PCP DR Lunsford. She states Pt' s body was hot w/ chills. Aid denies SOB, chest pain, abdominal pain, N/V/D. Hx otbained. PE:WNL of patient limitations. Pt is afebrile and hemodynamically stable. Rapid strep ordered: negative, Influenxa a&B ordered: negative. [place] X -ray ordered to r/o any abnormality: Impression: no cardiopulmonary disease observed. UA ordered. Nurse had to catheterize Pt to obtain Urine sample. Result : positive Leukoesteraces. Pt Rx Batrci PO to treat prophylactically possible UTI. Urine sent for culture to r/o any abdnomality. Pt Rx Bactrim PO to alleviate symptoms. Home health Aid advised she will be notified of urine result fur further managent. Home Health aid advised to give Pt tylenol if Pt continues w/ fever. However strongly advised if Pt develops severe fever despite abtibiotics to immediately to her to the ER for further management.Pt's BP is mildly elevated today advised to decrease salt in diet, monitor BP and f/ u with PCP for further management. D/C instrcutions explained. Home health Aid understood and agreed w/ plan of care. - Febrile Illness Differential Diagnoses: Bacteremia, Fever of Unknown Origin, Pneumonia, Pyelonephritis, Sepsis, Viremia, Other: - influenza, UTI, - Diagnoses Clinic Provider Diagnoses: 1- UTI. 2- fever. 3- Elevated BP w/o Hx of HTN Discharge - Sign-Out/Discharge Documenting (check all that apply): Patient Departure - D/c home All imaging exams completed and their final reports reviewed: No - Discharge Plan Condition: Stable Disposition: HOME Prescriptions: Cephalexin CAP* [Keflex 500 CAP*] 500 mg PO BID #14 cap Sulfamethox/Trimethoprim DS* [Bactrim DS 800/160 TAB*] 1 tab PO BID #5 tab Patient Education Materials: Urinary Tract Infection in Women (ED), Low-Sodium Diet (ED) Referrals: Tomeka Lunsford MD [Primary Care Provider] - 2 Days Additional Instructions: 1- Please give Bactrim PO x 3 days for prophylactic treatment of possible UTI. Increase increase fluid intake. drink cranberry juice. first dose given tonight 2-Urine sent for culture if any abnormality, you will be notified for further treatment. 3-If symptoms do not improve please return to the urgent care or f/u with her PCP for further management 4- If Pt continues w/ fever despite antibiotic please take her immediately to the ER for further management. 5- Strep and Influenza A&B negative. 6-Your BP is elevated today. please decrease salt in your diet, monitor BP and if it continues to be elevated please f/u with your PCP for further management - Billing Disposition and Condition Condition: STABLE Disposition: Home
[2018-01-10] MEDS ORDERED: Sulfamethox/Trimethoprim DS 800/160* TAB PO ONE (22:15)
--- NOTE | 2018-01-11 09:22 | RAD ---
Indication: Fever. Hypertension. Comparison: December 28, 2016 Technique: Sitting AP 2133 hours Report: Costochondral calcifications noted. No focal pulmonary lesion, compelling alveolar consolidation, pleural effusion, pneumothorax. The heart, pulmonary vasculature, and mediastinal contours are unremarkable. IMPRESSION: #. No evidence for acute intrathoracic disease. R0
--- NOTE | 2018-01-11 11:07 | UC ---
- Progress Note Progress Note: XR: IMPRESSION: #. No evidence for acute intrathoracic disease. No change in plan of care Discharge - Sign-Out/Discharge Documenting (check all that apply): Post-Discharge Follow Up All imaging exams completed and their final reports reviewed: Yes - Discharge Plan Condition: Stable Disposition: HOME Prescriptions: Sulfamethox/Trimethoprim DS* [Bactrim DS 800/160 TAB*] 1 tab PO BID #5 tab Patient Education Materials: Urinary Tract Infection in Women (ED), Low-Sodium Diet (ED) Referrals: Tomeka Lunsford MD [Primary Care Provider] - 2 Days Additional Instructions: 1- Please give Bactrim PO x 3 days for prophylactic treatment of possible UTI. Increase increase fluid intake. drink cranberry juice. first dose given tonight 2-Urine sent for culture if any abnormality, you will be notified for further treatment. 3-If symptoms do not improve please return to the urgent care or f/u with her PCP for further management 4- If Pt continues w/ fever despite antibiotic please take her immediately to the ER for further management. 5- Strep and Influenza A&B negative. 6-Your BP is elevated today. please decrease salt in your diet, monitor BP and if it continues to be elevated please f/u with your PCP for further management - Billing Disposition and Condition Condition: STABLE Disposition: Home
--- NOTE | 2018-01-12 16:31 | UC ---
- Progress Note Progress Note: Urine culture grew out group B strep. This is considered to be resistant to the Bactrim she wsa prescribed therefore will have her stop the Bactrim and start cephalexin 500 mg BID x 7 days. Discharge - Sign-Out/Discharge Documenting (check all that apply): Post-Discharge Follow Up All imaging exams completed and their final reports reviewed: Yes - Discharge Plan Condition: Stable Disposition: HOME Prescriptions: Sulfamethox/Trimethoprim DS* [Bactrim DS 800/160 TAB*] 1 tab PO BID #5 tab Patient Education Materials: Urinary Tract Infection in Women (ED), Low-Sodium Diet (ED) Referrals: Tomeka Lunsford MD [Primary Care Provider] - 2 Days Additional Instructions: 1- Please give Bactrim PO x 3 days for prophylactic treatment of possible UTI. Increase increase fluid intake. drink cranberry juice. first dose given tonight 2-Urine sent for culture if any abnormality, you will be notified for further treatment. 3-If symptoms do not improve please return to the urgent care or f/u with her PCP for further management 4- If Pt continues w/ fever despite antibiotic please take her immediately to the ER for further management. 5- Strep and Influenza A&B negative. 6-Your BP is elevated today. please decrease salt in your diet, monitor BP and if it continues to be elevated please f/u with your PCP for further management - Billing Disposition and Condition Condition: STABLE Disposition: Home
== END 2018-01-10 22:28 | disposition home or self-care (01) ==
LOC: UCEAST 19:16
DX: N39.0 Urinary tract infection, site not specified (principal); B95.1 Streptococcus, group B, as the cause of diseases classified elsewhere; Z87.440 Personal history of urinary (tract) infections; R50.9 Fever, unspecified; R03.0 Elevated blood-pressure reading, without diagnosis of hypertension; M81.0 Age-related osteoporosis without current pathological fracture; F80.9 Developmental disorder of speech and language, unspecified; Z88.6 Allergy status to analgesic agent; Z88.1 Allergy status to other antibiotic agents; Z88.7 Allergy status to serum and vaccine; Z88.8 Allergy status to other drugs, medicaments and biological substances
CPT/HCPCS: 71045; 71046; 81003; 87077; 87086; 87651; 99212; A9270-GY; G0463

== ENCOUNTER 2018-02-07 17:18 | Emergency (ER) | payer MEDICARE, MEDICAID ==
[2018-02-07 17:48] VITALS: BP 122/92
--- NOTE | 2018-02-07 19:15 | UC ---
UC General HPI - HPI Summary HPI Summary: 52-year-old woman who lives in a long-term comes in today not acting right. She's been more irritated than usual and she's been hitting herself and she's been drooling. This patient gets recurrent urinary tract infections and also yeast infections on her skin. It is noted under her breast there is a spreading infection. No fevers noted that her long-term. Normal bowel movement yesterday she has been eating and drinking fine. No reports of cough or chest congestion or rhinorrhea. - History of Current Complaint Chief Complaint: UCGeneralIllness Stated Complaint: FEVER Time Seen by Provider: 02/07/18 18:57 Hx Last Menstrual Period: N/A Pain Intensity: 6 - Allergy/Home Medications Allergies/Adverse Reactions: Allergies Allergy/AdvReac Type Severity Reaction Status Date / Time diclofenac [From Arthrotec] Allergy See Comment Verified 02/07/18 17:48 fluconazole [From Diflucan] Allergy See Comment Verified 02/07/18 17:48 Influenza Virus Vaccines Allergy Unknown Verified 02/07/18 17:48 Reaction Details misoprostol [From Arthrotec] Allergy See Comment Verified 02/07/18 17:48 PMH/Surg Hx/FS Hx/Imm Hx - Additional Past Medical History Additional PMH: INTELLECTUAL DEVELOPMENTAL DELAY Cardiovascular History: Hypertension Other Cardiovascular History: CARDIOMYOPATHY - Surgical History Surgical History: Unable to Obtain/Confirm Surgery Procedure, Year, and Place: unclear - Family History Known Family History: Positive: Unknown - unable to verbalize due to mr Family History: Level 5 caveat - NON-VERBAL MR. - Social History Alcohol Use: None Substance Use Type: None Smoking Status (MU): Never Smoked Tobacco Have You Smoked in the Last Year: No - Immunization History Most Recent Influenza Vaccination: no allergiec Most Recent Pneumonia Vaccination: up to date Vaccination Up to Date: Yes Review of Systems Constitutional: Other - NOT ACTING HERSELF Skin: Other - SEE HPI Eyes: Negative ENT: Other - DROOLING Respiratory: Negative Cardiovascular: Negative Gastrointestinal: Negative Genitourinary: Other - WEARS DEPENDS Motor: Negative Neurovascular: Negative Musculoskeletal: Negative Neurological: Negative Psychological: Negative Is Patient Immunocompromised?: No All Other Systems Reviewed And Are Negative: Yes Physical Exam Triage Information Reviewed: Yes Appearance: No Pain Distress, Well-Nourished, Other: - Patient has her eyes open and is looking around. She is drooling. She is responsive to voice but she is nonverbal. Vital Signs: Initial Vital Signs Temp 98.6 F 02/07/18 17:40 Pulse 72 02/07/18 17:40 Resp 20 02/07/18 17:40 BP 122/92 02/07/18 17:40 Pulse Ox 0 02/07/18 17:40 Vital Signs Reviewed: Yes Eye Exam: Normal Eyes: Positive: Conjunctiva Clear ENT: Positive: Other - Oral mucosa slightly dry. She is drooling. Neck exam: Normal Neck: Positive: Supple Respiratory: Positive: Lungs clear, Normal breath sounds, No respiratory distress Cardiovascular: Positive: RRR Abdomen Description: Positive: Nontender, Soft Bowel Sounds: Positive: Present Musculoskeletal: Positive: Other: - Patient's in her wheelchair she's not moving her legs this is normal. She is moving her arms. Neurological: Positive: Other: - Caregivers report port she's agitated Psychological Exam: Other - Caregivers report she is mildly subdued. Skin: Positive: Other - There is a yeast rash under both breasts. Course/Dx - Course Course Of Treatment: The urine was normal. At this time the only visible cause that may be causing the patient's discomfort is the yeast infection under her breasts. We'll treat her with Diflucan AND ANTI YEAST POWDER. I discussed this care with her caregiver. I let her know that if the patient did not improve her got worse she needed further evaluation preferably in the emergency department as it's difficult to evaluate her giving give in her intellectual developmental delay. - Differential Dx - Multi-Symptom Provider Diagnoses: INTERTRIGO CANDIDIASIS Discharge - Sign-Out/Discharge Documenting (check all that apply): Patient Departure All imaging exams completed and their final reports reviewed: No Studies - Discharge Plan Condition: Stable Disposition: HOME Prescriptions: Tolnaftate 1 applic TOPICAL BID #45 gm Patient Education Materials: Skin Yeast Infection (ED) Referrals: Tomeka Lunsford MD [Primary Care Provider] - Additional Instructions: FOLLOW UP WITH YOUR DOCTOR IF NOT COMPLETELY IMPROVED. GO TO THE EMERGENCY DEPARTMENT FOR ANY WORSENING OF CINTHIA'S CONDITION OR QUESTIONS OR CONCERNS. - Billing Disposition and Condition Condition: STABLE Disposition: Home
== END 2018-02-07 20:14 | disposition home or self-care (01) ==
LOC: UCEAST 17:18
DX: L30.4 Erythema intertrigo (principal); B37.2 Candidiasis of skin and nail; Z88.6 Allergy status to analgesic agent; Z88.1 Allergy status to other antibiotic agents; Z88.7 Allergy status to serum and vaccine; Z88.8 Allergy status to other drugs, medicaments and biological substances
CPT/HCPCS: 81003; 99212; G0463

== ENCOUNTER 2018-03-19 08:17 | Emergency (ER) | payer MEDICARE, MEDICAID ==
--- NOTE | 2018-03-19 08:25 | UC ---
Skin Complaint HPI - HPI Summary HPI Summary: 52 y/o female w/ PMHx of Intellectual Developmental Delay brought into the Urgent care by flavor room worker. Patient is non verbal. Caregiver Mrs Lizarraga from retirement states Pt has a sore in her lip since 03/14/2018 and her PCP Rx Acyclovir oint, but sore has worsen since Pt keep scratching it. Caregiver states pt has been acting her normal, and denies fever, SOB, chest pain, dizziness, abdominal pain, N/V/D or constipation. - History of Current Complaint Time Seen by Provider: 03/19/18 08:24 Stated Complaint: SORE ON LIP Hx Obtained From: Family/[employer] - Caregiver Hx Last Menstrual Period: N/A ?: No Onset/Duration: Gradual Onset, Lasting Weeks - 1 week, Still Present, Worse Since - 2 days Skin Exposure Onset/Duration: Weeks Ago - 1 week Timing: Constant Onset Severity: Mild Current Severity: Moderate Pain Scale Used: unable to describe Location: Other - on upper lip Character: Redness, Painful Aggravating Factor(s): Touch Alleviating Factor(s): Other - Acyclovir oint Associated Signs & Symptoms: Positive: Rash - on upper lip cold sore, Tenderness. Negative: Nausea, Vomiting, Numbness, Diaphoresis, Fever, Chills, Hoarseness, Throat Tightening, Abdominal Pain, Drainage Related History: Other: - Hx of herpes labialis - Allergy/Home Medications Allergies/Adverse Reactions: Allergies Allergy/AdvReac Type Severity Reaction Status Date / Time diclofenac [From Arthrotec] Allergy See Comment Verified 03/19/18 08:36 fluconazole [From Diflucan] Allergy See Comment Verified 03/19/18 08:36 Influenza Virus Vaccines Allergy Unknown Verified 03/19/18 08:36 Reaction Details misoprostol [From Arthrotec] Allergy See Comment Verified 03/19/18 08:36 Home Medications: Home Medications Bisacodyl SUPP* [Dulcolax Supp*] 1 supp [place] ONCE PRN 03/19/18 [History Confirmed 03/19/18] Fluconazole 150 MG (NF) [Diflucan 150 mg (NF)] 1 tab PO ONCE PRN 03/19/18 [ History Confirmed 03/19/18] Hydrocodone/Acetaminophen [Hydrocodone-Acetamin 5-325 mg] 1 tab PO BID PRN 03/19 [History Confirmed 03/19/18] Magnesium Hydroxide [Milk of Magnesia] 30 ml PO ONCE PRN 03/19/18 [History Confirmed 03/19/18] Menthol/Zinc Oxide [Gold Yadav Medicated Body Powd] 1 applic TOPICAL BID [History Confirmed 03/19/18] Nystatin TOP POWDER* 1 applic TOPICAL BID PRN 03/19/18 [History Confirmed ] PMH/Surg Hx/FS Hx/Imm Hx - Additional Past Medical History Additional PMH: Pervasive Intellectual developmental disorder Previously Healthy: Yes Other Endocrine History: Osteoporosis Other Cardiovascular History: tachycardia Respiratory History: Bronchitis, Pneumonia Neurological History: Seizures Other Neurological History: DDD - Surgical History Surgical History: Unable to Obtain/Confirm Surgery Procedure, Year, and Place: unclear - Family History Known Family History: Positive: Unknown - unable to verbalize due to mr Family History: Level 5 caveat - NON-VERBAL MR. - Social History Occupation: Disabled Lives: [employer] Alcohol Use: None Substance Use Type: None Smoking Status (MU): Never Smoked Tobacco Have You Smoked in the Last Year: No - Immunization History Most Recent Influenza Vaccination: no allergiec Most Recent Pneumonia Vaccination: up to date Vaccination Up to Date: Yes Review of Systems All Other Systems Reviewed And Are Negative: Yes Constitutional: Positive: Negative Skin: Positive: Rash - on upper lip w/ a cold sore hot healing Eyes: Positive: Negative ENT: Positive: Negative Respiratory: Positive: Negative Cardiovascular: Positive: Negative Gastrointestinal: Positive: Negative Genitourinary: Positive: Negative Motor: Positive: Negative Neurovascular: Positive: Negative Musculoskeletal: Positive: Negative Neurological: Positive: Negative Psychological: Positive: Negative Is Patient Immunocompromised?: No Physical Exam - Summary Physical Exam Summary: Vital Signs Reviewed: Yes General: well developed, well nourished MR obese female sitting in her wheel chair acting her normal as per caregiver, no apparent respiratory or pain distress. Eyes: Positive: Conjunctiva Clear - PERRLA, EOMI ENT: Positive: Normal ENT inspection, Hearing grossly normal, Pharynx normal, TMs normal Neck: Positive: Supple, Nontender, No Lymphadenopathy Respiratory: Positive: Chest nontender, Lungs clear, Normal breath sounds Cardiovascular: Positive: RRR, No Murmur, Pulses Normal Abdomen Description: Positive: Nontender, No Organomegaly, Soft. Negative: CVA Tenderness (R), CVA Tenderness (L) Bowel Sounds: Positive: Present Musculoskeletal: No Edema, patient in wheel chir upper extremities w/ strength WNL Neurological Exam: Normal Psychological Exam: Normal Skin: Positive: rashes -mid upper lip w/ a crusting erythematous and vesicular lesion, mild tender to palpation. mild swelling , no drainage observed Triage Information Reviewed: Yes Course/Dx - Course Course Of Treatment: 52 y/o female w/ PMHx of Intellectual Developmental Delay brought into the Urgent care by flavor room worker. Patient is non verbal. Caregiver Mrs Lizarraga from retirement states Pt has a sore in her lip since 03/14/2018 and her PCP Rx Acyclovir oint, but sore has worsen since Pt keep scratching it. Caregiver states pt has been acting her normal, and denies fever, SOB, chest pain, dizziness, abdominal pain, N/V/D or constipation. Hx obtained. Pt w/ herpes labialis on mid upper lip on examination. Pt is hemodynamically stable and afebrile. Pt Rx Valtrex PO x 1 day as directed below. Caregiver advised to give Pt Tylenol PO for pain. Strongly advised if not improvement of symptoms to f/u w/ Pt's PCP Dr Saldaña for further management sicen pt is also taking Tizanidine fo spasticity and this medication may interfere w/ Valtrex. [employer]give advised to decrease Tizanidine PO today to 1 tab only and resume normal dosage tomorrow. Caregiver understood and agreed w/ D/C instrucitons. Pt left clinic hemodynamically stable. - Differential Diagnoses - Skin Complaint Differential Diagnoses: Abscess, Cellulitis, Contact Dermatitis, Eczema, Local Allergic Reaction, MRSA, Urticaria, Other - herpes labialis - Diagnoses Provider Diagnosis: Herpes simplex labialis Discharge - Sign-Out/Discharge Documenting (check all that apply): Patient Departure - D/c home All imaging exams completed and their final reports reviewed: No Studies - Discharge Plan Condition: Stable Disposition: HOME Prescriptions: ValACYclovir (*) [Valtrex 1 GM(*)] 1 gm PO BID #4 tab Patient Education Materials: Oral Herpes Simplex Virus Infections (ED) Referrals: Tomeka Lunsford MD [Primary Care Provider] - 2 Days Additional Instructions: 1-Please Take Valtrex PO as directed and continue applying the acyclovir oint as directed By your PCP to keep sore lubricated. 2-Give her Tylenol PO q6hrs prn for pain 3-The Valtrex PO may interact w/ the Tizanidine PO Pt is taking, please decrease the dose to once a day today. 4-If symptoms do not improve or worsen please f/u with your PCP DR Jiménez or return to the urgent care for further evaluation and treatment. - Billing Disposition and Condition Condition: STABLE Disposition: Home
[2018-03-19 08:35] VITALS: BP 123/76
== END 2018-03-19 09:15 | disposition home or self-care (01) ==
LOC: UCEAST 08:17
DX: B00.1 Herpesviral vesicular dermatitis (principal); F81.9 Developmental disorder of scholastic skills, unspecified; F80.9 Developmental disorder of speech and language, unspecified; Z88.8 Allergy status to other drugs, medicaments and biological substances
CPT/HCPCS: 99212; G0463

== ENCOUNTER 2018-03-28 20:23 | Emergency (ER) | payer MEDICARE, MEDICAID ==
[2018-03-28] MEDS ORDERED: Lidocaine 2% EPI 1:200000 MPF* 10 ML VIAL INJ ONE (20:30)
[2018-03-28] MEDS ORDERED: Lidocaine 2% EPI 1:200000 MPF*10-20 ML VIAL ONE (20:31)
--- NOTE | 2018-03-28 20:37 | ED ---
Laceration/Wound HPI - HPI Summary HPI Summary: This patient is a 53 year old brought in by ambulance to [facility] with a chief complaint of head laceration since 1 hour ago. According to EMS, patients aide was wheeling her into her van when she fell out of her wheelchair and hit her head. Patient presents with a laceration on her right forehead, above her eye. EMS denies loss of consciousness and patient is alert and oriented in ED, if nonverbal. EMS additionally reports blood around her mouth, stating that she may have bit her lip. Level 5 Caveat: Patient nonverbal at baseline - History of Current Complaint Stated Complaint: FALL Time Seen by Provider: 03/28/18 20:28 Hx Obtained From: EMS Hx From Patient Unobtainable Due To: Other - Level 5 Caveat: Patient nonverbal at baseline Hx Last Menstrual Period: N/A Mechanism of Injury: Sharp/Blunt Trauma - fall Onset/Duration: Lasting Hours, Still Present Aggravating: Nothing Alleviating: Nothing - Additional Pertinent History Primary Care Physician: [id number] - Allergy/Home Medications Allergies/Adverse Reactions: Allergies Allergy/AdvReac Type Severity Reaction Status Date / Time diclofenac [From Arthrotec] Allergy See Comment Verified 03/28/18 20:31 fluconazole [From Diflucan] Allergy See Comment Verified 03/28/18 20:31 Influenza Virus Vaccines Allergy Unknown Verified 03/28/18 20:31 Reaction Details misoprostol [From Arthrotec] Allergy See Comment Verified 03/28/18 20:31 PMH/Surg Hx/FS Hx/Imm Hx Previously Healthy: No Endocrine/Hematology History: Reports: Hx Anemia Denies: Hx Diabetes, Hx Thyroid Disease Cardiovascular History: Reports: Hx Hypertension - NEW 09/2015, Other Cardiovascular Problems/Disorders - Cardiomyopathy Respiratory History: Reports: Hx Seasonal Allergies, Other Respiratory Problems/ Disorders - PLEURAL EFFUSION IN 03/2013- TREATED WITH ABX Denies: Hx Asthma, Hx Chronic Obstructive Pulmonary Disease (COPD) GI History: Reports: Hx Diverticulosis, Other GI Disorders - hx of impaction/ INC OF STOOL Denies: Hx Ulcer History: Reports: Hx Kidney Infection Musculoskeletal History: Reports: Hx Back Problems, Hx Osteoporosis, Hx Scoliosis Sensory History: Reports: Other Sensory Impairments - Frequent ear infections Denies: Hx Contacts or Glasses, Hx Hearing Aid Opthamlomology History: Reports: Other Sensory Impairments - Frequent ear infections Denies: Hx Contacts or Glasses Neurological History: Reports: Hx Developmental Delay, Hx Seizures - LAST 1982, Other Neuro Impairments/Disorders - BEHAVORAL OUTBURSTS Psychiatric History: Reports: Hx Anxiety - ON MEDICATION FOR, Hx Autism - Cancer History Cancer Type, Location and Year: right breast mass - benign - Surgical History Surgery Procedure, Year, and Place: unclear - Immunization History Date of Tetanus Vaccine: UTD Date of Influenza Vaccine: 2012 Infectious Disease History: Reports: History Other Infectious Disease - herpes Denies: Hx Clostridium Difficile, Hx Hepatitis, Hx Human Immunodeficiency Virus (HIV), Hx of Known/Suspected MRSA, Hx Shingles, Hx Tuberculosis, Hx Known/ Suspected VRE, Hx Known/Suspected VRSA - Family History Known Family History: Positive: Unknown - unable to verbalize due to mr Family History: Level 5 caveat - NON-VERBAL MR. - Social History Alcohol Use: None Hx Substance Use: No Substance Use Type: Reports: None Hx Tobacco Use: No Smoking Status (MU): Never Smoked Tobacco Have You Smoked in the Last Year: No Review of Systems Negative: Fever Positive: Other - laceration above right eye, split lip All Other Systems Reviewed And Are Negative: No - Comments Additional Review of Systems Comments: Level 5 Caveat: Patient nonverbal at baseline Physical Exam - Summary Physical Exam Summary: Appearance: Well-appearing, Well-nourished, lying in bed comfortable Skin: Warm, dry, no obvious rash Eyes: sclera anicteric, no conjunctival pallor, Obvious contusion and lac above right eye, 3cm ragged laceration of upper temporal eyebrow right, Globe is intact, no hyphemia, Gaze conjugate ENT: mucous membranes moist Neck: deferred Respiratory: No signs of respiratory distress Cardiovascular: Appears well perfused, pulses are nml Abdomen: deferred Musculoskeletal: Moving all 4 extremities without obvious discomfort Neurological: Awake alert, looking around, without any apparent discomfort. nonverbal Psychiatric: affect is normal, does not appear anxious or depressed Triage Information Reviewed: Yes Vital Signs Reviewed: Yes Completion Of Physical Exam Limited Due To: Level 5 Procedures - Laceration/Wound Repair 1 Location: head Description: Linear Anesthesia: Local, 2.0%, Lido Length, Depth and Shape: 3cm jagged laceration above right eye Betadine Prep?: Yes Irrigated w/ Saline (ccs): 0 Laceration/Wound Explored: clean Closure: Single Layer - 5 Debridement: minimal Suture Type: Nylon Number of Sutures: 5 Layer Closure?: Yes Sterile Dressing Applied?: Yes 2 Location: head Description: Linear Anesthesia: Local, 2.0%, Lido Length, Depth and Shape: right lower eyelid, 1cm Betadine Prep?: Yes Laceration/Wound Explored: clean Closure: Skin Adhesive Layer Closure?: Yes Sterile Dressing Applied?: Yes Diagnostics - Laboratory Lab Statement: Any lab studies that have been ordered have been reviewed, and results considered in the medical decision making process. - CT CT Brain CT Interpretation Completed By: Radiologist Summary of CT Findings: CT Brain reveals, per radiologist, IMPRESSION: Soft tissue swelling overlying the right globe and frontal calvarium. No underlying fracture. The appearance of the right globe, extraocular muscles and intraconal structures are intact. No evidence of acute intracranial hemorrhage. No intracranial mass or obstructive hydrocephalus. ED physician has reviewed this radiology report. CT Maxillofacial CT Interpretation Completed By: Radiologist Summary of CT Findings: CT Maxillofacial reveals, per radiologist, IMPRESSION: 1. Soft tissue swelling overlying the right orbit extending into the right frontal calvarium and frontal sinus. No underlying fracture. The right globe, extraocular muscles and intraconal structures are intact. 2. No acute facial fractures. ED physician has reviewed this radiology report. Laceration Repair Course/Dx - Course Course Of Treatment: This patient is a 53 year old brought in by ambulance to [facility] with a chief complaint of head laceration since 1 hour ago. According to EMS, patients aide was wheeling her into her van when she fell out of her wheelchair and hit her head. Patient presents with a laceration on her right forehead, above her eye. CT Brain and CT Maxillofacial taken. Patient will be discharged with a dx of facial laceration. Patient is advised to follow up with PCP in 3 days. The patient is agreeable with this plan. - Clinical Impression Provider Diagnoses: Facial laceration Discharge - Sign-Out/Discharge Documenting (check all that apply): Patient Departure - Discharge Plan Condition: Stable Disposition: HOME Patient Education Materials: Laceration (ED) Referrals: Tomeka Lunsford MD [Primary Care Provider] - Additional Instructions: Sutures should be removed in 5-7 days. Ice the area frequently over the next couple of days to help with pain and swelling. Tylenol 1 gm three times daily can be given if the patient appears uncomfortable from her injury. Infections are rare on facial wounds, but if the area gets very red, has purulent drainage and gets more swollen we should see her back here to check for that. - Attestation Statements Document Initiated by Allen: Yes Documenting Scribe: Yolanda Flor Provider For Whom Allen is Documenting (Include Credential): Randal Hopson MD Scribe Attestation: I, Yolanda Flor, scribed for Randal Hopson MD on 03/28/18 at 2203. Status of Scribe Document: Ready
[2018-03-28] MEDS ORDERED: Acetaminophen TAB* 325 MG PO ONE (22:08)
[2018-03-28 22:27] VITALS: BP 140/86
== END 2018-03-28 22:26 | disposition home or self-care (01) ==
LOC: ED 20:23
DX: S01.111A Laceration without foreign body of right eyelid and periocular area, initial encounter (principal); S01.511A Laceration without foreign body of lip, initial encounter; W05.0XXA Fall from non-moving wheelchair, initial encounter; Y92.9 Unspecified place or not applicable; I10 Essential (primary) hypertension
CPT/HCPCS: 12011; 70450; 70486; 96374; 99283; A9270-GY